=== PATIENT | male | born 1955 | race Caucasian/White ===

== ENCOUNTER 2021-05-23 14:01 | Inpatient (IN) ==
[~2021-05-23 14:01] MED LIST: CLORAZEPATE 3.75 MG TABLET PO PRN; DEXTROSE 50% 25 GM/50 ML VIAL IV PRN; GLUCAGON 1 MG VIAL IM PRN; MORPHINE 2 MG/1 ML SYRINGE IV PRN; NICOTINE 21 MG/24 HR PATCH TRANSDERM PRN; NITROGLYCERIN SL 0.4 MG TABLET SL PRN; SODIUM CHLORIDE 0.9% 1,000 ML IV SCH; ZALEPLON 5 MG CAPSULE PO PRN
[2021-05-23 18:25] LABS: Basophils % 0.3 % (0.0-0.8); Eosinophils # 0.2 10*3/uL (0.0-0.87); Eosinophils % 1.9 % (0.00-10.9); Hemoglobin 12.3 GM/DL (14.0-18.0); Immature Granulocytes % 0.4 %; Immature Granulocytes Absolute 0.04 #; Lymphocytes # 1.8 10*3/uL (1.4-4.0); Lymphocytes % 19.1 % (21.2-54.2); Mean Corpuscular HGB Conc 33.2 GM/DL (32-36); Mean Corpuscular Volume 84.5 FL (87-102); Mean Platelet Volume 9.5 FL (9.6-12.0); Monocytes % 6.7 % (1.7-12.7); Neutrophils % 71.6 % (38.7-73.9); Platelet Count 246 T/CUMM (130-400); Red Blood Count 4.38 MC/CUMM (3.8-5.5); Red Cell Distribution Width 12.2 % (9.3-17.3); White Blood Count 9.3 T/CUMM (4-12)
[2021-05-23 18:50] LABS: Alanine Aminotransferase 12 U/L (16-61); Alkaline Phosphatase 78 U/L (45-117); Aspartate Amino Transferase 13 U/L (0-37); Bilirubin,Total < 0.39 MG/DL (0.20-1.00); Blood Urea Nitrogen 13 MG/DL (7-18); Calcium 8.4 MG/DL (8.5-10.1); Carbon Dioxide 27 MMOL/L (21-32); Estimated Glom Filtration Rate 47 ML/MIN; Glucose 219 MG/DL (74-106); Osmolality,Calculated 276.1 MOS/KG (273-304); Potassium 3.8 MMOL/L (3.5-5.1); Sodium 135 MMOL/L (136-145); Total Protein 6.7 G/DL (6.4-8.2)
[2021-05-23] MEDS ORDERED: ACETAMINOPHEN 325 MG TABLET PO PRN (20:56)
[2021-05-23] MEDS: CHLORHEXIDINE 0.12% ORAL RINSE 60 ML BOTTLE SWISH/SPIT SCH ×2 (21:13→21:14)
[2021-05-23] MEDS: INSULIN REGULAR 100 UNIT/ML SUBCUT SCH ×2 (21:13)
[2021-05-23] MEDS: CHLORHEXIDINE 4% SOLN 118 ML BOTTLE TOP SCH ×2 (21:13)
[2021-05-24 03:37] LABS: ABG Base Excess 3.7 MMOL/L (-2.5-2.5); ABG HCO3 27.6 MMOL/L (20-26); ABG Oxygen Saturation 94.8 % (95-100); ABG PCO2 40.4 MM HG (35-48); ABG PH 7.447 (7.35-7.45); ABG PO2 70.4 MM HG (80-95); ABG TCO2 24.9 MMOL/L (23-27)
[2021-05-24] MEDS: CHLORHEXIDINE 4% SOLN 118 ML BOTTLE TOP SCH (04:50)
[2021-05-24] MEDS ORDERED: CEFUROXIME INJ 1,500 MG in SODIUM CHLORIDE 0.9% 100 ML IV ONE (05:00)
[2021-05-24] MEDS ORDERED: VANCOMYCIN 1,000 MG VIAL ONE (05:32)
[2021-05-24] MEDS ORDERED: PAPAVERINE 60 MG/2 ML VIAL ONE (05:32)
[2021-05-24] MEDS ORDERED: VANCOMYCIN 500 MG VIAL ONE (05:32)
[2021-05-24] MEDS ORDERED: MIDAZOLAM 10 MG/2 ML VIAL ONE ×3 (05:59)
[2021-05-24] MEDS ORDERED: SUFentanil 250 MCG/5 ML AMP ONE ×4 (05:59→09:24)
[2021-05-24] MEDS ORDERED: VECURONIUM 10 MG VIAL IV ONE (06:00)
[2021-05-24] MEDS ORDERED: ePHEDrine 50 MG/ML VIAL ONE (06:00)
[2021-05-24] MEDS ORDERED: ETOMIDATE 40 MG/20 ML VIAL IV ONE (06:00)
[2021-05-24] MEDS ORDERED: LIDOCAINE 2% 5 ML VIAL ONE ×3 (06:00→10:56)
[2021-05-24] MEDS ORDERED: CALCIUM CHLORIDE 1,000 MG/10 ML VIAL IV ONE ×3 (06:01→10:59)
[2021-05-24] MEDS ORDERED: DIAZEPAM 5 MG TABLET PO ONE (06:02)
[2021-05-24] MEDS ORDERED: SEVOFLURANE 1 UNIT/15 MINUTE INH ONE ×18 (06:13→11:51)
[2021-05-24] MEDS ORDERED: AMINOCAPROIC ACID 5,000 MG/20 ML VIAL ONE (06:18)
[2021-05-24] MEDS ORDERED: MINERAL OIL/PETROLATUM OPH OINT 3.5 GM TUBE ONE (07:05)
[2021-05-24 07:33] LABS: ABG Base Excess 1.1 MMOL/L (-2.5-2.5); ABG HCO3 25.4 MMOL/L (20-26); ABG Oxygen Saturation 97.2 % (95-100); ABG PCO2 46.8 MM HG (35-48); ABG PH 7.368 (7.35-7.45); ABG PO2 93.4 MM HG (80-95); ABG TCO2 24.2 MMOL/L (23-27); Glucose Heart Surgery 302 MG/DL (74-106); Hemoglobin Heart Surgery 11.4 G/DL (14.0-18.0); Ionized Calcium Arterial 1.13 MMOL/L (1.21-1.46); PCO2 Patient Temp Arterial 46.8 MMHG; PH Patient Temp Arterial 7.368; PO2 Patient Temp Arterial 93.4 MM HG; Patient Temperature 37 CELCIUS; Potassium Heart/CVR 3.6 MMOL/L (3.5-5.1); Sodium Heart/CVR 135 MMOL/L (135-145)
[2021-05-24] MEDS ORDERED: LACTATED RINGERS 1,000 ML IV ONE ×2 (07:55→10:10)
[2021-05-24] MEDS ORDERED: PHENYLEPHRINE DRIP 20 MG/250 ML PREMIX IV ONE (07:55)
[2021-05-24] MEDS ORDERED: PHENYLEPHRINE 1 MG/10 ML SYRINGE IV ONE (07:55)
[2021-05-24] MEDS ORDERED: NITROGLYCERIN DRIP 50 MG/250 ML BOTTLE IV ONE (07:55)
[2021-05-24] MEDS ORDERED: SODIUM CHLORIDE 0.9% 1,000 ML IV ONE (07:55)
[2021-05-24] MEDS ORDERED: HEPARIN/NACL 0.9% 2 UNITS/ML 1,000 UNIT/500 ML BAG IV ONE (07:55)
[2021-05-24] MEDS ORDERED: SODIUM CHLORIDE 0.9% 250 ML IV ONE (07:55)
[2021-05-24 08:16] LABS: Bilirubin,Urine Negative (Negative); Blood, Urine Negative (Negative); Glucose,Urine (UA) >=500 mg/dL (Negative); Ketones,Urine Negative (Negative); Mucus,Urine Occasional /LPF (Occasional); Nitrite,Urine Negative (Negative); Protein,Urine >=500 MG/DL; RBC,Urine 3 /HPF (0-4); Urine Appearance CLEAR (Clear); Urine Color Yellow (Yellow); Urine Specific Gravity 1.013 (1.001-1.035); Urine Urobilinogen < 2.0 EU/DL (0.2-1.0)
[2021-05-24] MEDS ORDERED: HEPARIN 10,000 UNIT/10 ML VIAL ONE ×2 (09:25→10:57)
[2021-05-24] MEDS ORDERED: NITROPRUSSIDE 50 MG/2 ML VIAL ONE (09:36)
[2021-05-24] MEDS ORDERED: SODIUM BICARBONATE 50 MEQ/50 ML VIAL IV ONE ×2 (09:36→10:57)
[2021-05-24] MEDS ORDERED: POTASSIUM CHLORIDE RIDER 20 MEQ/100 ML PREMIX IV ONE (09:37)
[2021-05-24] MEDS ORDERED: PHENYLEPHRINE DRIP 40 MG/250 ML PREMIX IV ONE (09:38)
[2021-05-24] MEDS ORDERED: CALCIUM CHLORIDE 1,000 MG/10 ML SYRINGE IV ONE (09:38)
[2021-05-24] MEDS ORDERED: ATROPINE 1 MG/10 ML SYRINGE ONE (09:44)
[2021-05-24] MEDS ORDERED: ALBUMIN 5% 12.5 GM/250 ML VIAL IV ONE (09:44)
[2021-05-24] MEDS ORDERED: LIDOCAINE 100 MG/5 ML SYRINGE ONE (09:44)
[2021-05-24 09:45] LABS: Hematocrit Heart Surgery 26.1 PERCENT (42-52); Hemoglobin Heart Surgery 8.4 G/DL (14.0-18.0); PCO2 Patient Temp Venous 39.8 MM HG; PH Patient Temp Venous 7.441; PO2 Patient Temp Venous 42.6 MM HG; VBG Base Excess 2.8 MEQ/L (0-4); VBG HCO3 26.7 MEQ/L (24-28); VBG Oxygen Saturation 80.5 %; VBG PCO2 39.8 MMHG (41-51); VBG PH 7.441; VBG PO2 42.6 MMHG (17-40); VBG Total CO2 25.1 MMOL/L
[2021-05-24] MEDS ORDERED: EPINEPHrine 1 MG/10 ML SYRINGE ONE (09:45)
[2021-05-24] MEDS ORDERED: ALBUTEROL INHALER 18 GM INH ONE (10:38)
[2021-05-24 10:46] LABS: ABG Base Excess 0.8 MMOL/L (-2.5-2.5); ABG Oxygen Saturation 90.7 % (95-100); ABG PCO2 40.5 MM HG (35-48); ABG PH 7.407 (7.35-7.45); ABG PO2 57.7 MM HG (80-95); ABG TCO2 23.3 MMOL/L (23-27); Glucose Heart Surgery 285 MG/DL (74-106); Hematocrit Heart Surgery 30.3 PERCENT (42-52); Hemoglobin Heart Surgery 9.8 G/DL (14.0-18.0); Ionized Calcium Arterial 1.39 MMOL/L (1.21-1.46); PCO2 Patient Temp Arterial 40.5 MMHG; PH Patient Temp Arterial 7.407; PO2 Patient Temp Arterial 57.7 MM HG; Patient Temperature 37 CELCIUS; Sodium Heart/CVR 133 MMOL/L (135-145)
[2021-05-24] MEDS ORDERED: ACETAMINOPHEN 650 MG SUPP RECTAL PRN (10:52)
[2021-05-24] MEDS ORDERED: LACTATED RINGERS 250 ML IV PRN (10:52)
[2021-05-24] MEDS ORDERED: MAGNESIUM SULF RIDER 4 GM/100 ML PREMIX IV PRN (10:52)
[2021-05-24] MEDS ORDERED: MORPHINE 10 MG/1 ML VIAL IV PRN (10:52)
[2021-05-24] MEDS ORDERED: INSULIN REGULAR 100 UNIT/ML IV ONE ×2 (10:52→15:56)
[2021-05-24] MEDS ORDERED: MIDAZOLAM 10 MG/2 ML VIAL IV PRN (10:52)
[2021-05-24] MEDS ORDERED: INSULIN REGULAR 100 UNIT/ML IV PRN (10:52)
[2021-05-24] MEDS ORDERED: MIDAZOLAM 2 MG/2 ML VIAL IV PRN (10:52)
[2021-05-24] MEDS ORDERED: CALCIUM CHLORIDE 1,000 MG/10 ML SYRINGE IV PRN (10:52)
[2021-05-24] MEDS ORDERED: ONDANSETRON 4 MG/2 ML VIAL IV PRN (10:52)
[2021-05-24] MEDS ORDERED: PHENYLEPHRINE DRIP 40 MG/250 ML PREMIX IV PRN (10:52)
[2021-05-24] MEDS ORDERED: DEXTROSE 50% 25 GM/50 ML VIAL IV PRN ×2 (10:52)
[2021-05-24] MEDS ORDERED: VECURONIUM 10 MG VIAL IV PRN ×2 (10:52)
[2021-05-24] MEDS ORDERED: MAGNESIUM SULF RIDER 2 GM/50 ML PREMIX IV PRN (10:52)
[2021-05-24] MEDS ORDERED: NITROPRUSSIDE 100 MG in DEXTROSE 5% 250 ML IV PRN (10:52)
[2021-05-24] MEDS ORDERED: CHLORHEXIDINE 4% SOLN 118 ML BOTTLE TOP PRN (10:52)
[2021-05-24] MEDS ORDERED: DEXTROSE 5% KCL 20 MEQ 20 MEQ/1,000 ML BAG IV ONE (10:55)
[2021-05-24] MEDS ORDERED: MAGNESIUM SULFATE 5 GM/10 ML VIAL IV ONE (10:56)
[2021-05-24] MEDS ORDERED: ALBUMIN 25% 25 GM/100 ML VIAL IV ONE (10:56)
[2021-05-24] MEDS ORDERED: FUROSEMIDE 20 MG/2 ML VIAL ONE (10:57)
[2021-05-24] MEDS ORDERED: methylPREDNISolone SOD SUC 1,000 MG/8 ML VIAL ONE (10:57)
[2021-05-24] MEDS ORDERED: MANNITOL 12.5 GM/50 ML VIAL IV ONE (10:57)
[2021-05-24] MEDS ORDERED: PROTAMINE SULFATE 250 MG/25 ML VIAL IV ONE (10:57)
[2021-05-24] MEDS ORDERED: ALBUTEROL 2.5 MG/3 ML NEB RESP TX ONE (11:11)
[2021-05-24] MEDS: SODIUM CHLORIDE 0.45% 1,000 ML IV SCH ×2 (11:30)
[2021-05-24 12:16] LABS: ABG Base Excess 0.7 MMOL/L (-2.5-2.5); ABG Oxygen Saturation 97.3 % (95-100); ABG PCO2 34.4 MM HG (35-48); ABG PH 7.454 (7.35-7.45); ABG PO2 87.4 MM HG (80-95); ABG TCO2 21.2 MMOL/L (23-27); Glucose Heart Surgery 289 MG/DL (74-106); Hematocrit Heart Surgery 38.1 PERCENT (42-52); Hemoglobin Heart Surgery 12.4 G/DL (14.0-18.0); Potassium Heart/CVR 3.8 MMOL/L (3.5-5.1)
[2021-05-24 12:21] LABS: Basophils % 0.3 % (0.0-0.8); Eosinophils % 0.4 % (0.00-10.9); Hematocrit 32.4 VOL% (42.0-52.0); Hemoglobin 10.8 GM/DL (14.0-18.0); Immature Granulocytes % 0.7 %; Immature Granulocytes Absolute 0.06 #; Lymphocytes # 0.7 10*3/uL (1.4-4.0); Lymphocytes % 7.8 % (21.2-54.2); Mean Corpuscular HGB Conc 33.3 GM/DL (32-36); Mean Corpuscular Volume 85.7 FL (87-102); Mean Platelet Volume 9.4 FL (9.6-12.0); Neutrophils % 85.8 % (38.7-73.9); Platelet Count 209 T/CUMM (130-400); Red Blood Count 3.78 MC/CUMM (3.8-5.5); Red Cell Distribution Width 12.5 % (9.3-17.3); White Blood Count 9.1 T/CUMM (4-12)
[2021-05-24 12:40] LABS: CKMB % 4.9 %
[2021-05-24 12:42] LABS: PT Patient Result 11.5 SECS (10.5-12.0); Partial Thromboplastin Time 32.1 SECS (23.8-32.1)
[2021-05-24 12:43] LABS: High Sensitive Troponin I* 1243.3 ng/L (0-78)
[2021-05-24 13:24] LABS: Albumin 2.1 G/DL (3.4-5.0); Calcium 9.3 MG/DL (8.5-10.1); Potassium 3.9 MMOL/L (3.5-5.1); Total Protein 5.7 G/DL (6.4-8.2)
[2021-05-24] MEDS: INSULIN REGULAR DRIP 100 ML IV SCH (14:25)
[2021-05-24] MEDS: LACTATED RINGERS 1,000 ML IV PRN ×2 (15:00→17:57)
[2021-05-24 15:43] LABS: ABG Base Excess 0.6 MMOL/L (-2.5-2.5); ABG HCO3 23.8 MMOL/L (20-26); ABG Oxygen Saturation 97.2 % (95-100); ABG PCO2 33.1 MM HG (35-48); ABG PH 7.474 (7.35-7.45); ABG PO2 94.4 MM HG (80-95); ABG TCO2 24.8 MMOL/L (23-27); Glucose Heart Surgery 279 MG/DL (74-106); Hemoglobin Heart Surgery 10.5 G/DL (14.0-18.0); Potassium Heart/CVR 3.8 MMOL/L (3.5-5.1)
[2021-05-24] MEDS: POTASSIUM CHLORIDE RIDER 20 MEQ/100 ML PREMIX IV PRN ×2 (17:00→21:10)
[2021-05-24] MEDS: ALBUMIN 5% 12.5 GM/250 ML VIAL IV PRN ×2 (17:11→17:27)
[2021-05-24] MEDS: POTASSIUM CHLORIDE RIDER 10 MEQ/100 ML PREMIX IV PRN ×2 (17:31→22:53)
[2021-05-24] MEDS ORDERED: FUROSEMIDE 40 MG/4 ML VIAL IV ONE (18:09)
[2021-05-24] MEDS: CEFUROXIME INJ 1,500 MG in SODIUM CHLORIDE 0.9% 100 ML IV SCH (19:13)
[2021-05-24 19:16] LABS: ABG HCO3 23.6 MMOL/L (20-26); ABG Oxygen Saturation 95.9 % (95-100); ABG PCO2 32.6 MM HG (35-48); ABG PH 7.447 (7.35-7.45); ABG PO2 74.3 MM HG (80-95); ABG TCO2 20.5 MMOL/L (23-27); Glucose Heart Surgery 196 MG/DL (74-106); Hematocrit Heart Surgery 30.3 PERCENT (42-52); Hemoglobin Heart Surgery 9.8 G/DL (14.0-18.0); Potassium Heart/CVR 3.7 MMOL/L (3.5-5.1)
[2021-05-24 20:54] LABS: ABG Base Excess 0.7 MMOL/L (-2.5-2.5); ABG Oxygen Saturation 94.7 % (95-100); ABG PCO2 26.9 MM HG (35-48); ABG PO2 62.9 MM HG (80-95); ABG TCO2 20.2 MMOL/L (23-27); Glucose Heart Surgery 169 MG/DL (74-106); Hematocrit Heart Surgery 32.9 PERCENT (42-52); Hemoglobin Heart Surgery 10.6 G/DL (14.0-18.0); Potassium Heart/CVR 3.6 MMOL/L (3.5-5.1)
[2021-05-24] MEDS: CHLORHEXIDINE 0.12% ORAL RINSE 60 ML BOTTLE SWISH/SPIT SCH (20:59)
[2021-05-24] MEDS: DEXMEDETOMIDINE 200 MCG in SODIUM CHLORIDE 0.9% 48 ML IV PRN (21:55)
[2021-05-24 22:06] LABS: CKMB % 3.8 %
[2021-05-24 22:10] LABS: High Sensitive Troponin I* 3585.9 ng/L (0-78)
[2021-05-24 23:04] LABS: ABG Base Excess 1.5 MMOL/L (-2.5-2.5); ABG HCO3 25.7 MMOL/L (20-26); ABG Oxygen Saturation 97.8 % (95-100); ABG PCO2 30.9 MM HG (35-48); ABG PH 7.501 (7.35-7.45); ABG PO2 88.1 MM HG (80-95); ABG TCO2 21.9 MMOL/L (23-27); Glucose Heart Surgery 144 MG/DL (74-106); Hematocrit Heart Surgery 30.3 PERCENT (42-52); Hemoglobin Heart Surgery 9.8 G/DL (14.0-18.0); Potassium Heart/CVR 4.1 MMOL/L (3.5-5.1)
[2021-05-25 00:09] LABS: ABG Base Excess 0.4 MMOL/L (-2.5-2.5); ABG HCO3 24.8 MMOL/L (20-26); ABG Oxygen Saturation 98.3 % (95-100); ABG PCO2 34.9 MM HG (35-48); ABG PH 7.446 (7.35-7.45); ABG TCO2 21.8 MMOL/L (23-27); Glucose Heart Surgery 206 MG/DL (74-106); Hematocrit Heart Surgery 31.3 PERCENT (42-52); Hemoglobin Heart Surgery 10.1 G/DL (14.0-18.0); Potassium Heart/CVR 4.4 MMOL/L (3.5-5.1)
[2021-05-25] MEDS: DEXMEDETOMIDINE 200 MCG in SODIUM CHLORIDE 0.9% 48 ML IV PRN ×3 (00:29→07:04)
[2021-05-25] MEDS: ALBUMIN 5% 12.5 GM/250 ML VIAL IV PRN (00:30)
[2021-05-25] MEDS ORDERED: FUROSEMIDE 40 MG/4 ML VIAL IV ONE ×3 (00:59→15:31)
[2021-05-25 01:44] LABS: ABG Base Excess -0.8 MMOL/L (-2.5-2.5); ABG HCO3 23.8 MMOL/L (20-26); ABG Oxygen Saturation 97.4 % (95-100); ABG PCO2 37.1 MM HG (35-48); ABG PH 7.411 (7.35-7.45); ABG PO2 93.1 MM HG (80-95); ABG TCO2 21.4 MMOL/L (23-27); Glucose Heart Surgery 186 MG/DL (74-106); Hematocrit Heart Surgery 31.1 PERCENT (42-52); Hemoglobin Heart Surgery 10.1 G/DL (14.0-18.0)
[2021-05-25 02:31] LABS: ABG Base Excess -1.1 MMOL/L (-2.5-2.5); ABG HCO3 23.5 MMOL/L (20-26); ABG Oxygen Saturation 95.8 % (95-100); ABG PCO2 36.3 MM HG (35-48); ABG PH 7.412 (7.35-7.45); ABG PO2 77.6 MM HG (80-95); Glucose Heart Surgery 173 MG/DL (74-106); Hematocrit Heart Surgery 31.1 PERCENT (42-52); Hemoglobin Heart Surgery 10.1 G/DL (14.0-18.0); Potassium Heart/CVR 3.9 MMOL/L (3.5-5.1)
[2021-05-25 03:18] LABS: ABG Base Excess -0.1 MMOL/L (-2.5-2.5); ABG HCO3 24.3 MMOL/L (20-26); ABG Oxygen Saturation 95.2 % (95-100); ABG PCO2 32.4 MM HG (35-48); ABG PH 7.461 (7.35-7.45); ABG PO2 71.1 MM HG (80-95); ABG TCO2 20.6 MMOL/L (23-27); Glucose Heart Surgery 160 MG/DL (74-106); Hematocrit Heart Surgery 34.3 PERCENT (42-52); Hemoglobin Heart Surgery 11.1 G/DL (14.0-18.0)
[2021-05-25 03:20] LABS: Basophils % 0.1 % (0.0-0.8); Hematocrit 30.2 VOL% (42.0-52.0); Hemoglobin 9.9 GM/DL (14.0-18.0); Immature Granulocytes % 0.4 %; Immature Granulocytes Absolute 0.06 #; Lymphocytes # 0.8 10*3/uL (1.4-4.0); Lymphocytes % 5.8 % (21.2-54.2); Mean Corpuscular HGB Conc 32.8 GM/DL (32-36); Monocytes % 2.6 % (1.7-12.7); Neutrophils % 91.1 % (38.7-73.9); Platelet Count 199 T/CUMM (130-400); Red Blood Count 3.51 MC/CUMM (3.8-5.5); Red Cell Distribution Width 12.6 % (9.3-17.3); White Blood Count 13.4 T/CUMM (4-12)
[2021-05-25 03:38] LABS: CKMB % 3.9 %; High Sensitive Troponin I* 3275.4 ng/L (0-78)
[2021-05-25 03:43] LABS: Lymphocytes 4 % (20-55); Platelet Estimate Adequate; Segmented Neutrophils 92 % (50-85); Total Cells Counted 100
[2021-05-25 03:44] LABS: Hypochromasia 1+; Microcytosis 1+
[2021-05-25 03:47] LABS: Albumin 2.4 G/DL (3.4-5.0); Bilirubin,Direct 0.11 MG/DL (0.0-0.20); Bilirubin,Total 0.4 MG/DL (0.20-1.00); Calcium 8.1 MG/DL (8.5-10.1); Osmolality,Calculated 283.5 MOS/KG (273-304); Potassium 4.2 MMOL/L (3.5-5.1); Total Protein 5.2 G/DL (6.4-8.2)
[2021-05-25 04:37] LABS: ABG Base Excess -0.2 MMOL/L (-2.5-2.5); ABG HCO3 24.2 MMOL/L (20-26); ABG Oxygen Saturation 95.8 % (95-100); ABG PH 7.437 (7.35-7.45); ABG PO2 75.5 MM HG (80-95); ABG TCO2 21.4 MMOL/L (23-27); Glucose Heart Surgery 146 MG/DL (74-106); Hematocrit Heart Surgery 30.7 PERCENT (42-52); Hemoglobin Heart Surgery 9.9 G/DL (14.0-18.0); Potassium Heart/CVR 4.1 MMOL/L (3.5-5.1)
[2021-05-25] MEDS: LACTATED RINGERS 1,000 ML IV PRN (05:10)
[2021-05-25] MEDS: INSULIN REGULAR DRIP 100 ML IV SCH ×2 (05:40→10:55)
[2021-05-25 05:42] LABS: ABG Base Excess -0.4 MMOL/L (-2.5-2.5); ABG HCO3 24.1 MMOL/L (20-26); ABG Oxygen Saturation 95.2 % (95-100); ABG PCO2 34.4 MM HG (35-48); ABG PH 7.439 (7.35-7.45); ABG PO2 72.4 MM HG (80-95); Glucose Heart Surgery 140 MG/DL (74-106); Hematocrit Heart Surgery 32.7 PERCENT (42-52); Hemoglobin Heart Surgery 10.6 G/DL (14.0-18.0)
[2021-05-25] MEDS: CEFUROXIME INJ 1,500 MG in SODIUM CHLORIDE 0.9% 100 ML IV SCH ×2 (07:10→18:18)
[2021-05-25] MEDS: INSULIN REGULAR 100 UNIT/ML SUBCUT SCH ×3 (07:37→20:29)
[2021-05-25] MEDS: CHLORHEXIDINE 0.12% ORAL RINSE 60 ML BOTTLE SWISH/SPIT SCH ×3 (07:37→20:29)
[2021-05-25 08:49] LABS: ABG Base Excess 0.4 MMOL/L (-2.5-2.5); ABG HCO3 24.8 MMOL/L (20-26); ABG Oxygen Saturation 95.7 % (95-100); ABG PCO2 28.6 MM HG (35-48); ABG PH 7.509 (7.35-7.45); ABG PO2 72.2 MM HG (80-95); ABG TCO2 20.6 MMOL/L (23-27); Glucose Heart Surgery 141 MG/DL (74-106); Hematocrit Heart Surgery 30.4 PERCENT (42-52); Hemoglobin Heart Surgery 9.8 G/DL (14.0-18.0); Potassium Heart/CVR 3.7 MMOL/L (3.5-5.1)
[2021-05-25 09:52] LABS: ABG Base Excess 0.7 MMOL/L (-2.5-2.5); ABG Oxygen Saturation 94.1 % (95-100); ABG PH 7.542 (7.35-7.45); ABG PO2 61.9 MM HG (80-95); ABG TCO2 20.3 MMOL/L (23-27); Glucose Heart Surgery 130 MG/DL (74-106); Hematocrit Heart Surgery 30.3 PERCENT (42-52); Hemoglobin Heart Surgery 9.8 G/DL (14.0-18.0); Potassium Heart/CVR 3.5 MMOL/L (3.5-5.1)
[2021-05-25] MEDS: POTASSIUM CHLORIDE RIDER 20 MEQ/100 ML PREMIX IV PRN (09:56)
[2021-05-25] MEDS: PANTOPRAZOLE 40 MG VIAL IV SCH (10:51)
[2021-05-25] MEDS: ASPIRIN CHEW 81 MG TABLET PO SCH (10:52)
[2021-05-25] MEDS: SODIUM CHLORIDE 0.45% 1,000 ML IV SCH ×2 (10:53)
[2021-05-25 11:59] LABS: ABG Base Excess -0.1 MMOL/L (-2.5-2.5); ABG HCO3 24.3 MMOL/L (20-26); ABG Oxygen Saturation 95.2 % (95-100); ABG PCO2 28.9 MM HG (35-48); ABG PH 7.497 (7.35-7.45); ABG PO2 70.2 MM HG (80-95); ABG TCO2 20.3 MMOL/L (23-27); Glucose Heart Surgery 114 MG/DL (74-106); Hemoglobin Heart Surgery 9.7 G/DL (14.0-18.0); Potassium Heart/CVR 3.7 MMOL/L (3.5-5.1)
[2021-05-25 12:37] LABS: CKMB % 3.5 %
[2021-05-25 12:39] LABS: High Sensitive Troponin I* 3264.4 ng/L (0-78)
[2021-05-25] MEDS: oxyCODONE/ACETAMINOPHEN 5-325 MG TABLET PO PRN ×2 (15:49→23:05)
[2021-05-25] MEDS: ALBUTEROL/IPRATROPIUM 3 ML NEB RESP TX SCH ×2 (16:00→20:00)
[2021-05-26] MEDS: ALBUTEROL/IPRATROPIUM 3 ML NEB RESP TX SCH ×4 (00:12→19:13)
[2021-05-26 04:41] LABS: Basophils % 0.1 % (0.0-0.8); Eosinophils # 0.1 10*3/uL (0.0-0.87); Eosinophils % 0.7 % (0.00-10.9); Hematocrit 28.7 VOL% (42.0-52.0); Hemoglobin 9.3 GM/DL (14.0-18.0); Immature Granulocytes % 0.6 %; Lymphocytes # 1.7 10*3/uL (1.4-4.0); Lymphocytes % 9.8 % (21.2-54.2); Mean Corpuscular HGB Conc 32.4 GM/DL (32-36); Mean Corpuscular Volume 88.9 FL (87-102); Mean Platelet Volume 10.2 FL (9.6-12.0); Monocytes % 6.1 % (1.7-12.7); Neutrophils % 82.7 % (38.7-73.9); Platelet Count 224 T/CUMM (130-400); Red Blood Count 3.23 MC/CUMM (3.8-5.5); Red Cell Distribution Width 12.8 % (9.3-17.3); White Blood Count 17.4 T/CUMM (4-12)
[2021-05-26 05:04] LABS: Alanine Aminotransferase 14 U/L (16-61); Alkaline Phosphatase 62 U/L (45-117); Aspartate Amino Transferase 46 U/L (0-37); Bilirubin,Direct < 0.100 MG/DL (0.0-0.20); Bilirubin,Total < 0.39 MG/DL (0.20-1.00); Blood Urea Nitrogen 33 MG/DL (7-18); Calcium 7.6 MG/DL (8.5-10.1); Carbon Dioxide 26 MMOL/L (21-32); Estimated Glom Filtration Rate 29 ML/MIN; Glucose 219 MG/DL (74-106); Potassium 3.9 MMOL/L (3.5-5.1); Sodium 136 MMOL/L (136-145); Total Protein 5.4 G/DL (6.4-8.2)
[2021-05-26] MEDS: ASPIRIN CHEW 81 MG TABLET PO SCH (08:11)
[2021-05-26] MEDS: CHLORHEXIDINE 0.12% ORAL RINSE 60 ML BOTTLE SWISH/SPIT SCH ×2 (08:13→21:17)
[2021-05-26] MEDS: oxyCODONE/ACETAMINOPHEN 5-325 MG TABLET PO PRN ×4 (08:13→21:15)
[2021-05-26] MEDS: PANTOPRAZOLE 40 MG VIAL IV SCH (08:14)
[2021-05-26] MEDS: INSULIN REGULAR 100 UNIT/ML SUBCUT SCH ×4 (08:14→21:16)
[2021-05-26] MEDS ORDERED: PHENOL 1.4% THROAT SPRAY 177 ML BOTTLE PO PRN (12:46)
[2021-05-26] MEDS ORDERED: MAGNESIUM SULF RIDER 4 GM/100 ML PREMIX IV PRN (13:29)
[2021-05-26] MEDS ORDERED: DEXTROSE 50% 25 GM/50 ML VIAL IV PRN ×2 (13:29)
[2021-05-26] MEDS ORDERED: ALUMINUM/MAGNES/SIMETH MAX STR 30 ML UDCUP PO PRN (13:29)
[2021-05-26] MEDS ORDERED: MAGNESIUM SULF RIDER 2 GM/50 ML PREMIX IV PRN (13:29)
[2021-05-26] MEDS ORDERED: GLUCAGON 1 MG VIAL IM PRN ×2 (13:29)
[2021-05-26] MEDS ORDERED: ACETAMINOPHEN 325 MG TABLET PO PRN (13:29)
[2021-05-26] MEDS ORDERED: SODIUM CHLOR 0.45% KCL 20 MEQ 20 MEQ/1,000 ML BAG IV SCH (13:29)
[2021-05-26] MEDS ORDERED: ONDANSETRON 4 MG/2 ML VIAL IV PRN (13:29)
[2021-05-26] MEDS ORDERED: MAGNESIUM HYDROXIDE SUSP 30 ML UDCUP PO PRN (13:29)
[2021-05-26] MEDS: hydroCHLOROthiazide 25 MG TABLET PO SCH (15:07)
[2021-05-26] MEDS: metFORMIN 500 MG TABLET PO SCH (16:55)
[2021-05-26] MEDS ORDERED: FUROSEMIDE 40 MG/4 ML VIAL IV ONE ×2 (17:28)
[2021-05-26] MEDS: ZALEPLON 5 MG CAPSULE PO PRN (21:15)
[2021-05-26] MEDS: INSULIN GLARGINE 100 UNIT/ML SUBCUT SCH (21:17)
[2021-05-27] MEDS: ZALEPLON 5 MG CAPSULE PO PRN ×2 (00:16→20:55)
[2021-05-27] MEDS: MORPHINE 2 MG/1 ML SYRINGE IV PRN (00:40)
[2021-05-27] MEDS: ALBUTEROL/IPRATROPIUM 3 ML NEB RESP TX SCH ×4 (00:48→20:10)
[2021-05-27 05:00] LABS: Basophils % 0.3 % (0.0-0.8); Eosinophils # 0.4 10*3/uL (0.0-0.87); Eosinophils % 2.5 % (0.00-10.9); Hematocrit 31.3 VOL% (42.0-52.0); Hemoglobin 9.9 GM/DL (14.0-18.0); Immature Granulocytes % 0.7 %; Lymphocytes # 2.3 10*3/uL (1.4-4.0); Lymphocytes % 15.3 % (21.2-54.2); Mean Corpuscular HGB Conc 31.6 GM/DL (32-36); Mean Corpuscular Volume 88.2 FL (87-102); Mean Platelet Volume 10.1 FL (9.6-12.0); Neutrophils % 73.2 % (38.7-73.9); Platelet Count 238 T/CUMM (130-400); Red Blood Count 3.55 MC/CUMM (3.8-5.5); Red Cell Distribution Width 12.6 % (9.3-17.3); White Blood Count 14.7 T/CUMM (4-12)
[2021-05-27 05:17] LABS: Alanine Aminotransferase 14 U/L (16-61); Alkaline Phosphatase 69 U/L (45-117); Aspartate Amino Transferase 20 U/L (0-37); Bilirubin,Indirect 0.3 MG/DL (0.0-1.0); Bilirubin,Total < 0.39 MG/DL (0.20-1.00); Blood Urea Nitrogen 32 MG/DL (7-18); Calcium 7.8 MG/DL (8.5-10.1); Carbon Dioxide 29 MMOL/L (21-32); Estimated Glom Filtration Rate 33 ML/MIN; Glucose 172 MG/DL (74-106); Osmolality,Calculated 285.7 MOS/KG (273-304); Potassium 3.3 MMOL/L (3.5-5.1); Sodium 138 MMOL/L (136-145); Total Protein 5.7 G/DL (6.4-8.2)
[2021-05-27] MEDS ORDERED: FUROSEMIDE 40 MG/4 ML VIAL IV ONE ×4 (06:00→18:00)
[2021-05-27] MEDS: POTASSIUM CHLORIDE 20 MEQ TABLET PO PRN ×3 (06:49→09:25)
[2021-05-27] MEDS: INSULIN REGULAR 100 UNIT/ML SUBCUT SCH ×4 (08:03→21:32)
[2021-05-27] MEDS: hydroCHLOROthiazide 25 MG TABLET PO SCH (08:04)
[2021-05-27] MEDS: METOPROLOL TARTRATE 25 MG TABLET PO SCH ×2 (08:04→21:34)
[2021-05-27] MEDS: metFORMIN 500 MG TABLET PO SCH ×2 (08:05→17:07)
[2021-05-27] MEDS: CLOPIDOGREL 75 MG TABLET PO SCH (08:05)
[2021-05-27] MEDS: FERROUS SULFATE 325 MG TABLET PO SCH (08:05)
[2021-05-27] MEDS: DOCUSATE SODIUM 100 MG CAPSULE PO SCH (08:05)
[2021-05-27] MEDS: PANTOPRAZOLE 40 MG TABLET PO SCH (08:05)
[2021-05-27] MEDS: CHLORHEXIDINE 0.12% ORAL RINSE 60 ML BOTTLE SWISH/SPIT SCH ×2 (08:06→21:34)
[2021-05-27] MEDS: ASPIRIN EC 81 MG TABLET PO SCH (08:06)
[2021-05-27] MEDS: oxyCODONE/ACETAMINOPHEN 5-325 MG TABLET PO PRN ×2 (14:08→21:35)
[2021-05-27] MEDS: ATORVASTATIN 40 MG TABLET PO SCH (21:33)
[2021-05-27] MEDS: INSULIN GLARGINE 100 UNIT/ML SUBCUT SCH (21:33)
[2021-05-28] MEDS: ALBUTEROL/IPRATROPIUM 3 ML NEB RESP TX SCH ×4 (00:53→18:45)
[2021-05-28] MEDS: ZALEPLON 5 MG CAPSULE PO PRN ×2 (01:00→20:12)
[2021-05-28] MEDS: MORPHINE 2 MG/1 ML SYRINGE IV PRN (01:00)
[2021-05-28 04:05] LABS: Basophils # 0.1 10*3/uL (0.0-0.2); Basophils % 0.5 % (0.0-0.8); Eosinophils # 0.5 10*3/uL (0.0-0.87); Eosinophils % 3.7 % (0.00-10.9); Hematocrit 29.6 VOL% (42.0-52.0); Hemoglobin 9.7 GM/DL (14.0-18.0); Immature Granulocytes % 0.7 %; Immature Granulocytes Absolute 0.09 #; Lymphocytes # 2.9 10*3/uL (1.4-4.0); Lymphocytes % 22.5 % (21.2-54.2); Mean Corpuscular HGB Conc 32.8 GM/DL (32-36); Mean Corpuscular Volume 87.1 FL (87-102); Mean Platelet Volume 9.8 FL (9.6-12.0); Monocytes % 6.9 % (1.7-12.7); Neutrophils % 65.7 % (38.7-73.9); Platelet Count 278 T/CUMM (130-400); Red Cell Distribution Width 12.5 % (9.3-17.3); White Blood Count 12.9 T/CUMM (4-12)
[2021-05-28 04:34] LABS: Alanine Aminotransferase 13 U/L (16-61); Albumin 1.9 G/DL (3.4-5.0); Alkaline Phosphatase 67 U/L (45-117); Aspartate Amino Transferase 14 U/L (0-37); Bilirubin,Indirect 0.4 MG/DL (0.0-1.0); Blood Urea Nitrogen 30 MG/DL (7-18); Calcium 7.9 MG/DL (8.5-10.1); Carbon Dioxide 31 MMOL/L (21-32); Estimated Glom Filtration Rate 38 ML/MIN; Glucose 106 MG/DL (74-106); Osmolality,Calculated 278.8 MOS/KG (273-304); Sodium 137 MMOL/L (136-145); Total Protein 5.7 G/DL (6.4-8.2)
[2021-05-28] MEDS: POTASSIUM CHLORIDE 20 MEQ TABLET PO PRN ×2 (06:04→08:15)
[2021-05-28] MEDS: INSULIN REGULAR 100 UNIT/ML SUBCUT SCH ×4 (07:30→20:11)
[2021-05-28] MEDS: METOPROLOL TARTRATE 25 MG TABLET PO SCH ×2 (08:15→20:11)
[2021-05-28] MEDS: FERROUS SULFATE 325 MG TABLET PO SCH (08:15)
[2021-05-28] MEDS: hydroCHLOROthiazide 25 MG TABLET PO SCH (08:15)
[2021-05-28] MEDS: metFORMIN 500 MG TABLET PO SCH (08:15)
[2021-05-28] MEDS: PANTOPRAZOLE 40 MG TABLET PO SCH (08:15)
[2021-05-28] MEDS: CLOPIDOGREL 75 MG TABLET PO SCH (08:15)
[2021-05-28] MEDS: DOCUSATE SODIUM 100 MG CAPSULE PO SCH (08:15)
[2021-05-28] MEDS: ASPIRIN EC 81 MG TABLET PO SCH (08:15)
[2021-05-28] MEDS: CHLORHEXIDINE 0.12% ORAL RINSE 60 ML BOTTLE SWISH/SPIT SCH ×2 (08:30→20:11)
[2021-05-28] MEDS: oxyCODONE/ACETAMINOPHEN 5-325 MG TABLET PO PRN ×2 (12:15→20:11)
[2021-05-28] MEDS ORDERED: SKIN HEALING OINT (AQUAPHOR) 50 GM TUBE TOP PRN (13:35)
[2021-05-28] MEDS: INSULIN GLARGINE 100 UNIT/ML SUBCUT SCH (20:11)
[2021-05-28] MEDS: ATORVASTATIN 40 MG TABLET PO SCH (20:11)
[2021-05-28] MEDS ORDERED: SODIUM CHLORIDE 0.65% NASAL SPRAY 45 ML BOTTLE BOTH NARES PRN (21:33)
[2021-05-29] MEDS: CLORAZEPATE 7.5 MG TABLET PO PRN (00:14)
[2021-05-29] MEDS: ALBUTEROL/IPRATROPIUM 3 ML NEB RESP TX SCH ×4 (01:09→20:03)
[2021-05-29 04:28] LABS: Basophils # 0.1 10*3/uL (0.0-0.2); Basophils % 0.6 % (0.0-0.8); Eosinophils # 0.5 10*3/uL (0.0-0.87); Hematocrit 31.4 VOL% (42.0-52.0); Hemoglobin 10.2 GM/DL (14.0-18.0); Immature Granulocytes % 0.9 %; Immature Granulocytes Absolute 0.11 #; Lymphocytes # 2.7 10*3/uL (1.4-4.0); Lymphocytes % 20.9 % (21.2-54.2); Mean Corpuscular HGB Conc 32.5 GM/DL (32-36); Mean Corpuscular Volume 87.7 FL (87-102); Mean Platelet Volume 9.6 FL (9.6-12.0); Monocytes % 6.6 % (1.7-12.7); Platelet Count 326 T/CUMM (130-400); Red Blood Count 3.58 MC/CUMM (3.8-5.5); Red Cell Distribution Width 12.5 % (9.3-17.3); White Blood Count 12.7 T/CUMM (4-12)
[2021-05-29 06:43] LABS: Calcium 7.9 MG/DL (8.5-10.1); Osmolality,Calculated 280.8 MOS/KG (273-304); Potassium 3.3 MMOL/L (3.5-5.1)
[2021-05-29] MEDS: INSULIN REGULAR 100 UNIT/ML SUBCUT SCH ×5 (07:45→21:27)
[2021-05-29] MEDS: CLOPIDOGREL 75 MG TABLET PO SCH (08:05)
[2021-05-29] MEDS: hydroCHLOROthiazide 25 MG TABLET PO SCH (08:05)
[2021-05-29] MEDS: FERROUS SULFATE 325 MG TABLET PO SCH (08:05)
[2021-05-29] MEDS: POTASSIUM CHLORIDE 20 MEQ TABLET PO PRN ×3 (08:05→12:15)
[2021-05-29] MEDS: PANTOPRAZOLE 40 MG TABLET PO SCH (08:05)
[2021-05-29] MEDS: METOPROLOL TARTRATE 25 MG TABLET PO SCH ×2 (08:05→21:24)
[2021-05-29] MEDS: DOCUSATE SODIUM 100 MG CAPSULE PO SCH (08:05)
[2021-05-29] MEDS: ASPIRIN EC 81 MG TABLET PO SCH (08:05)
[2021-05-29] MEDS: CHLORHEXIDINE 0.12% ORAL RINSE 60 ML BOTTLE SWISH/SPIT SCH ×2 (08:30→21:25)
[2021-05-29] MEDS ORDERED: SODIUM CHLORIDE 0.9% 100 ML IV ONE (12:08)
[2021-05-29] MEDS: ATORVASTATIN 40 MG TABLET PO SCH (21:25)
[2021-05-29] MEDS: INSULIN GLARGINE 100 UNIT/ML SUBCUT SCH (21:25)
[2021-05-30] MEDS: ALBUTEROL/IPRATROPIUM 3 ML NEB RESP TX SCH ×4 (01:00→19:51)
[2021-05-30] MEDS: oxyCODONE/ACETAMINOPHEN 5-325 MG TABLET PO PRN (04:20)
[2021-05-30 04:24] LABS: Basophils # 0.1 10*3/uL (0.0-0.2); Basophils % 0.5 % (0.0-0.8); Eosinophils # 0.5 10*3/uL (0.0-0.87); Eosinophils % 4.4 % (0.00-10.9); Hematocrit 29.6 VOL% (42.0-52.0); Hemoglobin 9.2 GM/DL (14.0-18.0); Immature Granulocytes % 0.9 %; Lymphocytes # 2.5 10*3/uL (1.4-4.0); Lymphocytes % 21.9 % (21.2-54.2); Mean Corpuscular HGB Conc 31.1 GM/DL (32-36); Mean Corpuscular Volume 88.4 FL (87-102); Mean Platelet Volume 9.8 FL (9.6-12.0); Monocytes % 8.3 % (1.7-12.7); Platelet Count 298 T/CUMM (130-400); Red Blood Count 3.35 MC/CUMM (3.8-5.5); Red Cell Distribution Width 12.7 % (9.3-17.3); White Blood Count 11.2 T/CUMM (4-12)
[2021-05-30 04:46] LABS: Alanine Aminotransferase 12 U/L (16-61); Albumin 1.9 G/DL (3.4-5.0); Alkaline Phosphatase 61 U/L (45-117); Aspartate Amino Transferase 7 U/L (0-37); Bilirubin,Direct < 0.100 MG/DL (0.0-0.20); Blood Urea Nitrogen 27 MG/DL (7-18); Calcium 8.1 MG/DL (8.5-10.1); Carbon Dioxide 29 MMOL/L (21-32); Estimated Glom Filtration Rate 35 ML/MIN; Glucose 207 MG/DL (74-106); Osmolality,Calculated 283.8 MOS/KG (273-304); Potassium 3.7 MMOL/L (3.5-5.1); Sodium 137 MMOL/L (136-145); Total Protein 5.7 G/DL (6.4-8.2)
[2021-05-30 04:50] LABS: Bilirubin,Indirect 0.7 MG/DL (0.0-1.0)
[2021-05-30] MEDS: CLORAZEPATE 7.5 MG TABLET PO PRN ×2 (06:03→19:23)
[2021-05-30] MEDS ORDERED: OZEMPIC 2MG/1.5ML SUBCUT SCH (09:00)
[2021-05-30] MEDS: DOCUSATE SODIUM 100 MG CAPSULE PO SCH (09:29)
[2021-05-30] MEDS: hydroCHLOROthiazide 25 MG TABLET PO SCH (09:29)
[2021-05-30] MEDS: FERROUS SULFATE 325 MG TABLET PO SCH (09:29)
[2021-05-30] MEDS: ASPIRIN EC 81 MG TABLET PO SCH (09:29)
[2021-05-30] MEDS: METOPROLOL TARTRATE 25 MG TABLET PO SCH ×2 (09:29→20:59)
[2021-05-30] MEDS: CLOPIDOGREL 75 MG TABLET PO SCH (09:29)
[2021-05-30] MEDS: INSULIN REGULAR 100 UNIT/ML SUBCUT SCH ×4 (09:29→21:00)
[2021-05-30] MEDS: PANTOPRAZOLE 40 MG TABLET PO SCH (09:29)
[2021-05-30] MEDS: CHLORHEXIDINE 0.12% ORAL RINSE 60 ML BOTTLE SWISH/SPIT SCH ×2 (09:30→21:00)
[2021-05-30] MEDS: ATORVASTATIN 40 MG TABLET PO SCH (20:59)
[2021-05-30] MEDS: ZALEPLON 5 MG CAPSULE PO PRN (21:00)
[2021-05-30] MEDS: INSULIN GLARGINE 100 UNIT/ML SUBCUT SCH (21:00)
[2021-05-31] MEDS: ALBUTEROL/IPRATROPIUM 3 ML NEB RESP TX SCH ×4 (01:09→20:15)
[2021-05-31 05:58] LABS: Basophils # 0.1 10*3/uL (0.0-0.2); Basophils % 0.5 % (0.0-0.8); Eosinophils # 0.5 10*3/uL (0.0-0.87); Eosinophils % 4.4 % (0.00-10.9); Hematocrit 29.7 VOL% (42.0-52.0); Hemoglobin 9.6 GM/DL (14.0-18.0); Immature Granulocytes Absolute 0.12 #; Lymphocytes # 2.8 10*3/uL (1.4-4.0); Lymphocytes % 22.2 % (21.2-54.2); Mean Corpuscular HGB Conc 32.3 GM/DL (32-36); Mean Corpuscular Volume 87.6 FL (87-102); Mean Platelet Volume 9.4 FL (9.6-12.0); Monocytes % 7.8 % (1.7-12.7); Neutrophils % 64.1 % (38.7-73.9); Platelet Count 319 T/CUMM (130-400); Red Blood Count 3.39 MC/CUMM (3.8-5.5); Red Cell Distribution Width 12.7 % (9.3-17.3); White Blood Count 12.4 T/CUMM (4-12)
[2021-05-31 06:18] LABS: Alanine Aminotransferase 18 U/L (16-61); Albumin 2.1 G/DL (3.4-5.0); Alkaline Phosphatase 69 U/L (45-117); Aspartate Amino Transferase 9 U/L (0-37); Bilirubin,Indirect 0.3 MG/DL (0.0-1.0); Blood Urea Nitrogen 24 MG/DL (7-18); Calcium 8.1 MG/DL (8.5-10.1); Carbon Dioxide 28 MMOL/L (21-32); Estimated Glom Filtration Rate 39 ML/MIN; Glucose 154 MG/DL (74-106); Osmolality,Calculated 281.7 MOS/KG (273-304); Potassium 3.6 MMOL/L (3.5-5.1); Sodium 138 MMOL/L (136-145); Total Protein 6.1 G/DL (6.4-8.2)
[2021-05-31] MEDS ORDERED: FUROSEMIDE 40 MG/4 ML VIAL IV ONE (06:28)
[2021-05-31] MEDS: INSULIN REGULAR 100 UNIT/ML SUBCUT SCH ×4 (09:35→21:15)
[2021-05-31] MEDS: CLOPIDOGREL 75 MG TABLET PO SCH (09:35)
[2021-05-31] MEDS: METOPROLOL TARTRATE 25 MG TABLET PO SCH ×2 (09:35→21:15)
[2021-05-31] MEDS: DOCUSATE SODIUM 100 MG CAPSULE PO SCH (09:35)
[2021-05-31] MEDS: FERROUS SULFATE 325 MG TABLET PO SCH (09:35)
[2021-05-31] MEDS: PANTOPRAZOLE 40 MG TABLET PO SCH (09:35)
[2021-05-31] MEDS: ASPIRIN EC 81 MG TABLET PO SCH (09:35)
[2021-05-31] MEDS: hydroCHLOROthiazide 25 MG TABLET PO SCH (09:35)
[2021-05-31] MEDS: CHLORHEXIDINE 0.12% ORAL RINSE 60 ML BOTTLE SWISH/SPIT SCH ×2 (09:37→21:15)
[2021-05-31] MEDS: CLORAZEPATE 7.5 MG TABLET PO PRN (17:11)
[2021-05-31] MEDS: INSULIN GLARGINE 100 UNIT/ML SUBCUT SCH (21:15)
[2021-05-31] MEDS: ATORVASTATIN 40 MG TABLET PO SCH (21:15)
[2021-05-31] MEDS: ZALEPLON 5 MG CAPSULE PO PRN (21:15)
[2021-06-01] MEDS: ALBUTEROL/IPRATROPIUM 3 ML NEB RESP TX SCH ×2 (02:52→07:22)
[2021-06-01] MEDS: INSULIN REGULAR 100 UNIT/ML SUBCUT SCH ×2 (09:40→11:57)
[2021-06-01] MEDS: CLOPIDOGREL 75 MG TABLET PO SCH (09:40)
[2021-06-01] MEDS: ASPIRIN EC 81 MG TABLET PO SCH (09:40)
[2021-06-01] MEDS: FERROUS SULFATE 325 MG TABLET PO SCH (09:40)
[2021-06-01] MEDS: PANTOPRAZOLE 40 MG TABLET PO SCH (09:40)
[2021-06-01] MEDS: DOCUSATE SODIUM 100 MG CAPSULE PO SCH (09:40)
[2021-06-01] MEDS: METOPROLOL TARTRATE 25 MG TABLET PO SCH (09:40)
[2021-06-01] MEDS: hydroCHLOROthiazide 25 MG TABLET PO SCH (09:40)
[2021-06-01] MEDS: CHLORHEXIDINE 0.12% ORAL RINSE 60 ML BOTTLE SWISH/SPIT SCH (11:03)
[2021-06-01 12:41] VITALS: BP 132/74
== END 2021-06-01 14:56 | disposition home health service (06) | DRG 235 ==
LOC: N.TELES 17:41 → N.CVR 05-24 11:20 → N.ICU 05-25 19:05 → N.TELES 05-29 16:47

== ENCOUNTER 2021-06-08 01:29 | Inpatient (IN) ==
[2021-06-08 01:50] LABS: Basophils # 0.1 10*3/uL (0.0-0.2); Basophils % 0.9 % (0.0-0.8); Eosinophils # 0.5 10*3/uL (0.0-0.87); Eosinophils % 4.3 % (0.00-10.9); Hematocrit 29.9 VOL% (42.0-52.0); Hemoglobin 9.4 GM/DL (14.0-18.0); Immature Granulocytes % 0.4 %; Immature Granulocytes Absolute 0.05 #; Lymphocytes # 1.7 10*3/uL (1.4-4.0); Mean Corpuscular HGB Conc 31.4 GM/DL (32-36); Mean Corpuscular Volume 86.7 FL (87-102); Mean Platelet Volume 9.2 FL (9.6-12.0); Monocytes % 4.5 % (1.7-12.7); Neutrophils % 75.9 % (38.7-73.9); Platelet Count 348 T/CUMM (130-400); Red Blood Count 3.45 MC/CUMM (3.8-5.5); Red Cell Distribution Width 12.9 % (9.3-17.3); White Blood Count 12.2 T/CUMM (4-12)
[2021-06-08] MEDS ORDERED: FUROSEMIDE 40 MG/4 ML VIAL IV STA (02:02)
[2021-06-08 02:04] LABS: ABG Base Excess -0.7 MMOL/L (-2.5-2.5); ABG HCO3 22.2 MMOL/L (20-26); ABG Oxygen Saturation 93.7 % (95-100); ABG PCO2 30.2 MM HG (35-48); ABG PH 7.485 (7.35-7.45); ABG PO2 66.5 MM HG (80-95); ABG TCO2 23.2 MMOL/L (23-27)
[2021-06-08 02:31] LABS: Alanine Aminotransferase 14 U/L (16-61); Albumin 2.3 G/DL (3.4-5.0); Alkaline Phosphatase 97 U/L (45-117); Aspartate Amino Transferase 7 U/L (0-37); Bilirubin,Total < 0.39 MG/DL (0.20-1.00); Blood Urea Nitrogen 30 MG/DL (7-18); Calcium 8.1 MG/DL (8.5-10.1); Carbon Dioxide 24 MMOL/L (21-32); Estimated Glom Filtration Rate 32 ML/MIN; Glucose 252 MG/DL (74-106); Osmolality,Calculated 295.3 MOS/KG (273-304); Potassium 3.7 MMOL/L (3.5-5.1); Sodium 141 MMOL/L (136-145); Total Protein 6.2 G/DL (6.4-8.2)
[2021-06-08] MEDS ORDERED: LABETALOL 20 MG/4 ML SYRINGE IV STA (04:15)
[2021-06-08] MEDS ORDERED: MAGNESIUM SULF RIDER 4 GM/100 ML PREMIX IV PRN (04:56)
[2021-06-08] MEDS ORDERED: MAGNESIUM SULF RIDER 2 GM/50 ML PREMIX IV PRN (04:56)
[2021-06-08] MEDS ORDERED: DEXTROSE 50% 25 GM/50 ML VIAL IV PRN (04:56)
[2021-06-08] MEDS ORDERED: GLUCAGON 1 MG VIAL IM PRN ×2 (04:56)
[2021-06-08] MEDS ORDERED: ACETAMINOPHEN 325 MG TABLET PO PRN (04:56)
[2021-06-08] MEDS ORDERED: ONDANSETRON 4 MG/2 ML VIAL IV PRN (04:56)
[2021-06-08] MEDS ORDERED: DEXTROSE 50% 25 GM/50 ML SYRINGE IV PRN (05:04)
[2021-06-08] MEDS ORDERED: hydrALAZINE 20 MG/1 ML VIAL IV PRN (05:06)
[2021-06-08] MEDS: INSULIN REGULAR 100 UNIT/ML SUBCUT SCH ×4 (08:15→21:53)
[2021-06-08] MEDS: FUROSEMIDE 100 MG/10 ML VIAL IV SCH ×2 (08:55→17:40)
[2021-06-08] MEDS: PANTOPRAZOLE 40 MG TABLET PO SCH (08:55)
[2021-06-08] MEDS ORDERED: NICOTINE 21 MG/24 HR PATCH TRANSDERM PRN (11:36)
[2021-06-08] MEDS: ALBUTEROL/IPRATROPIUM 3 ML NEB RESP TX SCH ×2 (13:37→19:50)
[2021-06-08] MEDS: CEFEPIME 1,000 MG in SODIUM CHLORIDE 0.9% 100 ML IV SCH ×2 (14:30→18:16)
[2021-06-08] MEDS: AZITHROMYCIN INJ 500 MG in SODIUM CHLORIDE 0.9% 250 ML IV SCH (15:00)
[2021-06-08] MEDS ORDERED: FUROSEMIDE 40 MG/4 ML VIAL IV SCH (15:00)
[2021-06-08] MEDS: ATORVASTATIN 40 MG TABLET PO SCH (21:36)
[2021-06-08] MEDS: TAMSULOSIN 0.4 MG CAPSULE PO SCH (21:36)
[2021-06-08] MEDS: METOPROLOL TARTRATE 25 MG TABLET PO SCH (21:36)
[2021-06-09] MEDS: ALBUTEROL/IPRATROPIUM 3 ML NEB RESP TX SCH ×4 (00:17→19:41)
[2021-06-09] MEDS: CEFEPIME 1,000 MG in SODIUM CHLORIDE 0.9% 100 ML IV SCH ×3 (04:15→18:05)
[2021-06-09 05:31] LABS: Basophils # 0.1 10*3/uL (0.0-0.2); Basophils % 1.2 % (0.0-0.8); Eosinophils # 0.5 10*3/uL (0.0-0.87); Hematocrit 27.2 VOL% (42.0-52.0); Hemoglobin 8.8 GM/DL (14.0-18.0); Immature Granulocytes % 0.3 %; Immature Granulocytes Absolute 0.03 #; Lymphocytes # 1.9 10*3/uL (1.4-4.0); Lymphocytes % 21.6 % (21.2-54.2); Mean Corpuscular HGB Conc 32.4 GM/DL (32-36); Mean Corpuscular Volume 86.3 FL (87-102); Mean Platelet Volume 9.4 FL (9.6-12.0); Neutrophils % 64.9 % (38.7-73.9); Platelet Count 301 T/CUMM (130-400); Red Blood Count 3.15 MC/CUMM (3.8-5.5); Red Cell Distribution Width 12.9 % (9.3-17.3); White Blood Count 8.9 T/CUMM (4-12)
[2021-06-09 05:56] LABS: Albumin 2.1 G/DL (3.4-5.0); Bilirubin,Total 0.7 MG/DL (0.20-1.00); Calcium 8.1 MG/DL (8.5-10.1); Calcium 8.3 MG/DL (8.5-10.1); Osmolality,Calculated 285.8 MOS/KG (273-304); Osmolality,Calculated 288.7 MOS/KG (273-304); Potassium 3.3 MMOL/L (3.5-5.1); Total Protein 6.1 G/DL (6.4-8.2)
[2021-06-09] MEDS: CLOPIDOGREL 75 MG TABLET PO SCH (09:08)
[2021-06-09] MEDS: METOPROLOL TARTRATE 25 MG TABLET PO SCH ×2 (09:08→20:57)
[2021-06-09] MEDS: ASPIRIN EC 81 MG TABLET PO SCH (09:08)
[2021-06-09] MEDS: TAMSULOSIN 0.4 MG CAPSULE PO SCH ×2 (09:08→20:57)
[2021-06-09] MEDS: PANTOPRAZOLE 40 MG TABLET PO SCH (09:08)
[2021-06-09] MEDS: FUROSEMIDE 100 MG/10 ML VIAL IV SCH ×2 (11:16→17:21)
[2021-06-09] MEDS: INSULIN REGULAR 100 UNIT/ML SUBCUT SCH ×4 (11:17→20:57)
[2021-06-09] MEDS: AZITHROMYCIN INJ 500 MG in SODIUM CHLORIDE 0.9% 250 ML IV SCH (12:39)
[2021-06-09] MEDS ORDERED: CLORAZEPATE 3.75 MG TABLET PO PRN (15:33)
[2021-06-09] MEDS: ATORVASTATIN 40 MG TABLET PO SCH (20:57)
[2021-06-10] MEDS: ALBUTEROL/IPRATROPIUM 3 ML NEB RESP TX SCH ×4 (01:03→19:43)
[2021-06-10] MEDS: CEFEPIME 1,000 MG in SODIUM CHLORIDE 0.9% 100 ML IV SCH ×3 (03:39→22:25)
[2021-06-10 05:37] LABS: Basophils # 0.1 10*3/uL (0.0-0.2); Eosinophils # 0.4 10*3/uL (0.0-0.87); Eosinophils % 4.2 % (0.00-10.9); Hematocrit 28.5 VOL% (42.0-52.0); Hemoglobin 9.1 GM/DL (14.0-18.0); Immature Granulocytes % 0.4 %; Immature Granulocytes Absolute 0.04 #; Lymphocytes # 1.6 10*3/uL (1.4-4.0); Lymphocytes % 17.4 % (21.2-54.2); Mean Corpuscular HGB Conc 31.9 GM/DL (32-36); Mean Corpuscular Volume 85.1 FL (87-102); Mean Platelet Volume 9.2 FL (9.6-12.0); Platelet Count 295 T/CUMM (130-400); Red Blood Count 3.35 MC/CUMM (3.8-5.5); White Blood Count 9.2 T/CUMM (4-12)
[2021-06-10 05:57] LABS: Calcium 8.1 MG/DL (8.5-10.1); Osmolality,Calculated 291.5 MOS/KG (273-304); Potassium 3.5 MMOL/L (3.5-5.1)
[2021-06-10] MEDS ORDERED: LACTULOSE 20 GM/30 ML UDCUP PO PRN (09:20)
[2021-06-10] MEDS ORDERED: KETOROLAC 30 MG/1 ML VIAL IV SCH (09:30)
[2021-06-10] MEDS: METOPROLOL TARTRATE 25 MG TABLET PO SCH ×2 (10:02→22:24)
[2021-06-10] MEDS: TAMSULOSIN 0.4 MG CAPSULE PO SCH ×2 (10:02→22:24)
[2021-06-10] MEDS: PANTOPRAZOLE 40 MG TABLET PO SCH (10:02)
[2021-06-10] MEDS: CLOPIDOGREL 75 MG TABLET PO SCH (10:02)
[2021-06-10] MEDS: INSULIN REGULAR 100 UNIT/ML SUBCUT SCH ×4 (10:03→22:47)
[2021-06-10] MEDS: ASPIRIN EC 81 MG TABLET PO SCH (10:14)
[2021-06-10] MEDS: POLYETHYLENE GLYCOL POWDER 17 GM PACK PO SCH (10:15)
[2021-06-10] MEDS: DOCUSATE SODIUM 100 MG CAPSULE PO SCH ×2 (10:15→22:24)
[2021-06-10] MEDS: FUROSEMIDE 100 MG/10 ML VIAL IV SCH ×2 (11:20→16:12)
[2021-06-10] MEDS: AZITHROMYCIN INJ 500 MG in SODIUM CHLORIDE 0.9% 250 ML IV SCH (11:23)
[2021-06-10] MEDS: CLORAZEPATE 3.75 MG TABLET PO PRN ×2 (12:04→19:30)
[2021-06-10] MEDS: ATORVASTATIN 40 MG TABLET PO SCH (22:24)
[2021-06-11] MEDS: CLORAZEPATE 3.75 MG TABLET PO PRN (00:19)
[2021-06-11] MEDS: ALBUTEROL/IPRATROPIUM 3 ML NEB RESP TX SCH ×6 (00:33→20:20)
[2021-06-11 05:34] LABS: Basophils # 0.1 10*3/uL (0.0-0.2); Basophils % 1.1 % (0.0-0.8); Eosinophils # 0.4 10*3/uL (0.0-0.87); Eosinophils % 4.3 % (0.00-10.9); Hematocrit 30.4 VOL% (42.0-52.0); Hemoglobin 9.5 GM/DL (14.0-18.0); Immature Granulocytes % 0.7 %; Immature Granulocytes Absolute 0.07 #; Lymphocytes % 21.3 % (21.2-54.2); Mean Corpuscular HGB Conc 31.3 GM/DL (32-36); Mean Corpuscular Volume 87.4 FL (87-102); Mean Platelet Volume 9.5 FL (9.6-12.0); Monocytes % 6.4 % (1.7-12.7); Neutrophils % 66.2 % (38.7-73.9); Platelet Count 308 T/CUMM (130-400); Red Blood Count 3.48 MC/CUMM (3.8-5.5); Red Cell Distribution Width 13.1 % (9.3-17.3); White Blood Count 9.5 T/CUMM (4-12)
[2021-06-11 05:52] LABS: Calcium 8.4 MG/DL (8.5-10.1); Osmolality,Calculated 288.4 MOS/KG (273-304); Potassium 3.1 MMOL/L (3.5-5.1)
[2021-06-11] MEDS: INSULIN REGULAR 100 UNIT/ML SUBCUT SCH ×4 (10:09→22:57)
[2021-06-11] MEDS: DOCUSATE SODIUM 100 MG CAPSULE PO SCH ×2 (10:11→22:56)
[2021-06-11] MEDS: ASPIRIN EC 81 MG TABLET PO SCH (10:11)
[2021-06-11] MEDS: METOPROLOL TARTRATE 25 MG TABLET PO SCH ×2 (10:11→22:56)
[2021-06-11] MEDS: TAMSULOSIN 0.4 MG CAPSULE PO SCH ×2 (10:11→22:57)
[2021-06-11] MEDS: PANTOPRAZOLE 40 MG TABLET PO SCH (10:12)
[2021-06-11] MEDS: CLOPIDOGREL 75 MG TABLET PO SCH (10:12)
[2021-06-11] MEDS: POLYETHYLENE GLYCOL POWDER 17 GM PACK PO SCH (10:12)
[2021-06-11] MEDS: FUROSEMIDE 100 MG/10 ML VIAL IV SCH ×2 (10:15→18:32)
[2021-06-11] MEDS: CEFEPIME 1,000 MG in SODIUM CHLORIDE 0.9% 100 ML IV SCH ×3 (10:29→22:57)
[2021-06-11] MEDS: POTASSIUM CHLORIDE 20 MEQ TABLET PO PRN ×3 (10:56→18:31)
[2021-06-11] MEDS: AZITHROMYCIN INJ 500 MG in SODIUM CHLORIDE 0.9% 250 ML IV SCH (11:03)
[2021-06-11 13:37] LABS: ABG Oxygen Saturation 93.2 % (95-100); ABG PCO2 32.5 MM HG (35-48); ABG PH 7.507 (7.35-7.45); ABG PO2 63.6 MM HG (80-95); ABG TCO2 23.4 MMOL/L (23-27)
[2021-06-11 14:04] LABS: Calcium 8.6 MG/DL (8.5-10.1); Osmolality,Calculated 286.8 MOS/KG (273-304)
[2021-06-11 14:08] LABS: Bilirubin,Urine Negative (Negative); Blood, Urine Small mg/dL (Negative); Glucose,Urine (UA) 150 mg/dL (Negative); Ketones,Urine Negative (Negative); Nitrite,Urine Negative (Negative); Protein,Urine 100 MG/DL; RBC,Urine 1 /HPF (0-4); Squamous Epithelial Cell,Urine Occasional /HPF (0-10); Urine Appearance CLEAR (Clear); Urine Color Straw (Yellow); Urine Specific Gravity 1.008 (1.001-1.035); Urine Urobilinogen < 2.0 EU/DL (0.2-1.0)
[2021-06-11 14:11] LABS: Hyaline Casts,Urine 1 /LPF (0-3)
[2021-06-11] MEDS ORDERED: ONDANSETRON 4 MG/2 ML VIAL IV PRN (20:14)
[2021-06-11 20:22] LABS: ABG Base Excess -0.6 MMOL/L (-2.5-2.5); ABG HCO3 23.8 MMOL/L (20-26); ABG Oxygen Saturation 92.2 % (95-100); ABG PCO2 35.5 MM HG (35-48); ABG PH 7.426 (7.35-7.45); ABG PO2 65.5 MM HG (80-95); ABG TCO2 21.1 MMOL/L (23-27)
[2021-06-11] MEDS ORDERED: FUROSEMIDE 40 MG/4 ML VIAL IV ONE (20:25)
[2021-06-11] MEDS ORDERED: CLORAZEPATE 7.5 MG TABLET PO ONE (20:28)
[2021-06-11] MEDS: ATORVASTATIN 40 MG TABLET PO SCH (22:56)
[2021-06-12] MEDS: ALBUTEROL/IPRATROPIUM 3 ML NEB RESP TX SCH ×4 (00:30→19:59)
[2021-06-12 06:15] LABS: Basophils # 0.1 10*3/uL (0.0-0.2); Basophils % 0.8 % (0.0-0.8); Eosinophils # 0.2 10*3/uL (0.0-0.87); Eosinophils % 1.6 % (0.00-10.9); Hematocrit 34.4 VOL% (42.0-52.0); Hemoglobin 10.3 GM/DL (14.0-18.0); Immature Granulocytes % 0.4 %; Immature Granulocytes Absolute 0.05 #; Lymphocytes # 1.9 10*3/uL (1.4-4.0); Lymphocytes % 15.7 % (21.2-54.2); Mean Corpuscular HGB Conc 29.9 GM/DL (32-36); Mean Corpuscular Volume 89.4 FL (87-102); Mean Platelet Volume 9.3 FL (9.6-12.0); Monocytes % 6.3 % (1.7-12.7); Neutrophils % 75.2 % (38.7-73.9); Platelet Count 323 T/CUMM (130-400); Red Blood Count 3.85 MC/CUMM (3.8-5.5); Red Cell Distribution Width 13.2 % (9.3-17.3); White Blood Count 12.1 T/CUMM (4-12)
[2021-06-12] MEDS: CEFEPIME 1,000 MG in SODIUM CHLORIDE 0.9% 100 ML IV SCH ×3 (06:27→23:35)
[2021-06-12 06:28] LABS: Calcium 8.7 MG/DL (8.5-10.1); Osmolality,Calculated 286.5 MOS/KG (273-304); Potassium 3.7 MMOL/L (3.5-5.1)
[2021-06-12] MEDS: INSULIN REGULAR 100 UNIT/ML SUBCUT SCH ×3 (07:46→16:34)
[2021-06-12] MEDS: POLYETHYLENE GLYCOL POWDER 17 GM PACK PO SCH (09:11)
[2021-06-12] MEDS: FUROSEMIDE 100 MG/10 ML VIAL IV SCH ×2 (09:11→15:55)
[2021-06-12] MEDS: METOPROLOL TARTRATE 25 MG TABLET PO SCH ×2 (09:12→21:35)
[2021-06-12] MEDS: PANTOPRAZOLE 40 MG TABLET PO SCH (09:12)
[2021-06-12] MEDS: TAMSULOSIN 0.4 MG CAPSULE PO SCH ×2 (09:12→21:35)
[2021-06-12] MEDS: CLOPIDOGREL 75 MG TABLET PO SCH (09:12)
[2021-06-12] MEDS: DOCUSATE SODIUM 100 MG CAPSULE PO SCH ×2 (09:12→21:47)
[2021-06-12] MEDS: ASPIRIN EC 81 MG TABLET PO SCH (09:12)
[2021-06-12] MEDS: CLORAZEPATE 7.5 MG TABLET PO PRN ×2 (09:12→21:35)
[2021-06-12] MEDS: POTASSIUM CHLORIDE 20 MEQ TABLET PO SCH (09:12)
[2021-06-12] MEDS: SPIRONOLACTONE 50 MG TABLET PO SCH (12:13)
[2021-06-12] MEDS: AZITHROMYCIN INJ 500 MG in SODIUM CHLORIDE 0.9% 250 ML IV SCH (12:15)
[2021-06-12 13:11] LABS: INR 1.1; PT Patient Result 12.2 SECS (10.5-12.0)
[2021-06-12] MEDS: ACETYLCYSTEINE 20% 800 MG/4 ML VIAL RESP TX SCH (14:24)
[2021-06-12] MEDS: BUDESONIDE 0.5 MG/2 ML NEB RESP TX SCH ×2 (14:24→19:59)
[2021-06-12] MEDS: ATORVASTATIN 40 MG TABLET PO SCH (21:35)
[2021-06-13] MEDS: ACETYLCYSTEINE 20% 800 MG/4 ML VIAL RESP TX SCH ×3 (00:32→13:33)
[2021-06-13] MEDS: ALBUTEROL/IPRATROPIUM 3 ML NEB RESP TX SCH ×4 (00:33→19:45)
[2021-06-13] MEDS: INSULIN REGULAR 100 UNIT/ML SUBCUT SCH ×5 (02:14→21:27)
[2021-06-13] MEDS: CLORAZEPATE 7.5 MG TABLET PO PRN ×2 (02:38→11:51)
[2021-06-13 06:02] LABS: Basophils # 0.1 10*3/uL (0.0-0.2); Eosinophils # 0.4 10*3/uL (0.0-0.87); Eosinophils % 5.3 % (0.00-10.9); Hematocrit 27.7 VOL% (42.0-52.0); Hemoglobin 8.4 GM/DL (14.0-18.0); Immature Granulocytes % 0.7 %; Immature Granulocytes Absolute 0.05 #; Lymphocytes # 1.9 10*3/uL (1.4-4.0); Lymphocytes % 25.5 % (21.2-54.2); Mean Corpuscular HGB Conc 30.3 GM/DL (32-36); Mean Corpuscular Volume 89.4 FL (87-102); Mean Platelet Volume 9.9 FL (9.6-12.0); Monocytes % 6.9 % (1.7-12.7); Neutrophils % 60.6 % (38.7-73.9); Platelet Count 247 T/CUMM (130-400); Red Cell Distribution Width 13.4 % (9.3-17.3); White Blood Count 7.3 T/CUMM (4-12)
[2021-06-13] MEDS: CEFEPIME 1,000 MG in SODIUM CHLORIDE 0.9% 100 ML IV SCH ×2 (06:16→14:25)
[2021-06-13 06:41] LABS: Alanine Aminotransferase 12 U/L (16-61); Alkaline Phosphatase 91 U/L (45-117); Aspartate Amino Transferase 3 U/L (0-37); Bilirubin,Total < 0.39 MG/DL (0.20-1.00); Blood Urea Nitrogen 36 MG/DL (7-18); Calcium 7.8 MG/DL (8.5-10.1); Carbon Dioxide 22 MMOL/L (21-32); Estimated Glom Filtration Rate 25 ML/MIN; Glucose 459 MG/DL (74-106); Osmolality,Calculated 300.8 MOS/KG (273-304); Potassium 4.3 MMOL/L (3.5-5.1); Sodium 137 MMOL/L (136-145); Total Protein 6.1 G/DL (6.4-8.2)
[2021-06-13 06:48] LABS: Calcium 7.9 MG/DL (8.5-10.1); Osmolality,Calculated 303.7 MOS/KG (273-304); Potassium 4.3 MMOL/L (3.5-5.1)
[2021-06-13] MEDS: BUDESONIDE 0.5 MG/2 ML NEB RESP TX SCH ×2 (07:02→19:50)
[2021-06-13] MEDS: POTASSIUM CHLORIDE 20 MEQ TABLET PO SCH (08:51)
[2021-06-13] MEDS: SPIRONOLACTONE 50 MG TABLET PO SCH (08:52)
[2021-06-13] MEDS: ASPIRIN EC 81 MG TABLET PO SCH (08:52)
[2021-06-13] MEDS: PANTOPRAZOLE 40 MG TABLET PO SCH (08:52)
[2021-06-13] MEDS: TAMSULOSIN 0.4 MG CAPSULE PO SCH ×2 (08:52→21:27)
[2021-06-13] MEDS: METOPROLOL TARTRATE 25 MG TABLET PO SCH ×2 (08:52→21:27)
[2021-06-13] MEDS: FUROSEMIDE 100 MG/10 ML VIAL IV SCH ×2 (08:53→16:34)
[2021-06-13] MEDS: DOCUSATE SODIUM 100 MG CAPSULE PO SCH ×2 (08:53→21:28)
[2021-06-13] MEDS: POLYETHYLENE GLYCOL POWDER 17 GM PACK PO SCH (08:54)
[2021-06-13] MEDS: AZITHROMYCIN INJ 500 MG in SODIUM CHLORIDE 0.9% 250 ML IV SCH (11:51)
[2021-06-13] MEDS: ATORVASTATIN 40 MG TABLET PO SCH (21:27)
[2021-06-14] MEDS: CEFEPIME 1,000 MG in SODIUM CHLORIDE 0.9% 100 ML IV SCH ×4 (00:32→23:29)
[2021-06-14] MEDS: CLORAZEPATE 7.5 MG TABLET PO PRN ×2 (02:05→20:47)
[2021-06-14 03:43] LABS: Basophils # 0.1 10*3/uL (0.0-0.2); Eosinophils # 0.7 10*3/uL (0.0-0.87); Eosinophils % 7.3 % (0.00-10.9); Hematocrit 27.1 VOL% (42.0-52.0); Hemoglobin 8.3 GM/DL (14.0-18.0); Immature Granulocytes % 0.5 %; Immature Granulocytes Absolute 0.05 #; Lymphocytes # 2.1 10*3/uL (1.4-4.0); Lymphocytes % 22.4 % (21.2-54.2); Mean Corpuscular HGB Conc 30.6 GM/DL (32-36); Mean Platelet Volume 9.7 FL (9.6-12.0); Monocytes % 6.3 % (1.7-12.7); Neutrophils % 62.5 % (38.7-73.9); Platelet Count 246 T/CUMM (130-400); Red Blood Count 3.01 MC/CUMM (3.8-5.5); Red Cell Distribution Width 13.6 % (9.3-17.3); White Blood Count 9.2 T/CUMM (4-12)
[2021-06-14 04:07] LABS: Osmolality,Calculated 292.4 MOS/KG (273-304); Potassium 3.7 MMOL/L (3.5-5.1)
[2021-06-14] MEDS: ACETYLCYSTEINE 20% 800 MG/4 ML VIAL RESP TX SCH ×3 (07:05→16:28)
[2021-06-14] MEDS: ALBUTEROL/IPRATROPIUM 3 ML NEB RESP TX SCH ×4 (07:05→20:27)
[2021-06-14] MEDS: BUDESONIDE 0.5 MG/2 ML NEB RESP TX SCH ×2 (07:05→20:27)
[2021-06-14] MEDS: METOPROLOL TARTRATE 25 MG TABLET PO SCH ×2 (09:57→20:22)
[2021-06-14] MEDS: ASPIRIN EC 81 MG TABLET PO SCH (09:57)
[2021-06-14] MEDS: PANTOPRAZOLE 40 MG TABLET PO SCH (09:57)
[2021-06-14] MEDS: SPIRONOLACTONE 50 MG TABLET PO SCH (09:57)
[2021-06-14] MEDS: TAMSULOSIN 0.4 MG CAPSULE PO SCH ×2 (09:57→20:22)
[2021-06-14] MEDS: POTASSIUM CHLORIDE 20 MEQ TABLET PO SCH (09:57)
[2021-06-14] MEDS: FUROSEMIDE 100 MG/10 ML VIAL IV SCH ×2 (10:01→17:13)
[2021-06-14] MEDS: INSULIN REGULAR 100 UNIT/ML SUBCUT SCH ×4 (10:04→20:48)
[2021-06-14] MEDS: DOCUSATE SODIUM 100 MG CAPSULE PO SCH ×2 (10:09→20:23)
[2021-06-14] MEDS: POLYETHYLENE GLYCOL POWDER 17 GM PACK PO SCH (10:10)
[2021-06-14] MEDS: POTASSIUM CHLORIDE 20 MEQ TABLET PO PRN (11:27)
[2021-06-14] MEDS: AZITHROMYCIN INJ 500 MG in SODIUM CHLORIDE 0.9% 250 ML IV SCH (11:28)
[2021-06-14] MEDS: ATORVASTATIN 40 MG TABLET PO SCH (20:22)
[2021-06-15] MEDS: ACETYLCYSTEINE 20% 800 MG/4 ML VIAL RESP TX SCH ×3 (00:53→12:35)
[2021-06-15] MEDS: ALBUTEROL/IPRATROPIUM 3 ML NEB RESP TX SCH ×4 (00:53→19:50)
[2021-06-15 06:16] LABS: Calcium 8.7 MG/DL (8.5-10.1); Osmolality,Calculated 296.3 MOS/KG (273-304); Potassium 3.9 MMOL/L (3.5-5.1)
[2021-06-15] MEDS: CEFEPIME 1,000 MG in SODIUM CHLORIDE 0.9% 100 ML IV SCH ×2 (06:43→15:16)
[2021-06-15] MEDS: BUDESONIDE 0.5 MG/2 ML NEB RESP TX SCH ×2 (07:50→19:50)
[2021-06-15] MEDS: ASPIRIN EC 81 MG TABLET PO SCH (10:27)
[2021-06-15] MEDS: POTASSIUM CHLORIDE 20 MEQ TABLET PO SCH (10:27)
[2021-06-15] MEDS: TAMSULOSIN 0.4 MG CAPSULE PO SCH ×2 (10:27→21:24)
[2021-06-15] MEDS: CLORAZEPATE 3.75 MG TABLET PO PRN (10:27)
[2021-06-15] MEDS: PANTOPRAZOLE 40 MG TABLET PO SCH (10:28)
[2021-06-15] MEDS: SPIRONOLACTONE 50 MG TABLET PO SCH (10:28)
[2021-06-15] MEDS: METOPROLOL TARTRATE 25 MG TABLET PO SCH ×2 (10:28→21:24)
[2021-06-15] MEDS: FUROSEMIDE 100 MG/10 ML VIAL IV SCH ×2 (10:32→16:15)
[2021-06-15] MEDS: AZITHROMYCIN INJ 500 MG in SODIUM CHLORIDE 0.9% 250 ML IV SCH (10:33)
[2021-06-15] MEDS: INSULIN REGULAR 100 UNIT/ML SUBCUT SCH ×4 (10:37→21:24)
[2021-06-15] MEDS: DOCUSATE SODIUM 100 MG CAPSULE PO SCH ×2 (10:39→21:24)
[2021-06-15] MEDS: POLYETHYLENE GLYCOL POWDER 17 GM PACK PO SCH (10:39)
[2021-06-15] MEDS ORDERED: LORazepam 0.5 MG TABLET PO ONE (11:49)
[2021-06-15] MEDS ORDERED: LORazepam 1 MG TABLET PO ONE (12:00)
[2021-06-15 12:07] LABS: ABG Base Excess -1.8 MMOL/L (-2.5-2.5); ABG HCO3 21.9 MMOL/L (20-26); ABG Oxygen Saturation 92.3 % (95-100); ABG PH 7.439 (7.35-7.45); ABG PO2 63.7 MM HG (80-95); ABG TCO2 22.9 MMOL/L (23-27)
[2021-06-15 13:23] LABS: Basophils # 0.1 10*3/uL (0.0-0.2); Basophils % 0.9 % (0.0-0.8); Eosinophils # 0.4 10*3/uL (0.0-0.87); Eosinophils % 4.3 % (0.00-10.9); Hematocrit 30.4 VOL% (42.0-52.0); Hemoglobin 9.3 GM/DL (14.0-18.0); Immature Granulocytes % 0.6 %; Immature Granulocytes Absolute 0.06 #; Lymphocytes # 1.6 10*3/uL (1.4-4.0); Lymphocytes % 16.5 % (21.2-54.2); Mean Corpuscular HGB Conc 30.6 GM/DL (32-36); Mean Corpuscular Volume 89.4 FL (87-102); Monocytes % 5.5 % (1.7-12.7); Neutrophils % 72.2 % (38.7-73.9); Platelet Count 291 T/CUMM (130-400); Red Cell Distribution Width 13.9 % (9.3-17.3); White Blood Count 9.5 T/CUMM (4-12)
[2021-06-15] MEDS: ATORVASTATIN 40 MG TABLET PO SCH (21:24)
[2021-06-15] MEDS: CLORAZEPATE 7.5 MG TABLET PO PRN (21:49)
[2021-06-16] MEDS: ACETYLCYSTEINE 20% 800 MG/4 ML VIAL RESP TX SCH ×3 (02:20→13:30)
[2021-06-16] MEDS: ALBUTEROL/IPRATROPIUM 3 ML NEB RESP TX SCH ×4 (02:20→18:56)
[2021-06-16] MEDS: CLORAZEPATE 7.5 MG TABLET PO PRN ×2 (04:01→21:16)
[2021-06-16 05:40] LABS: Basophils # 0.1 10*3/uL (0.0-0.2); Basophils % 0.8 % (0.0-0.8); Eosinophils # 0.4 10*3/uL (0.0-0.87); Eosinophils % 4.5 % (0.00-10.9); Hematocrit 30.8 VOL% (42.0-52.0); Hemoglobin 9.3 GM/DL (14.0-18.0); Lymphocytes % 20.3 % (21.2-54.2); Mean Corpuscular HGB Conc 30.2 GM/DL (32-36); Mean Corpuscular Volume 89.3 FL (87-102); Mean Platelet Volume 9.9 FL (9.6-12.0); Monocytes % 6.8 % (1.7-12.7); Neutrophils % 67.2 % (38.7-73.9); Platelet Count 265 T/CUMM (130-400); Red Blood Count 3.45 MC/CUMM (3.8-5.5); Red Cell Distribution Width 14.2 % (9.3-17.3); White Blood Count 9.8 T/CUMM (4-12)
[2021-06-16 05:59] LABS: Albumin 2.4 G/DL (3.4-5.0); Bilirubin,Total 0.7 MG/DL (0.20-1.00); Calcium 8.7 MG/DL (8.5-10.1); Osmolality,Calculated 295.4 MOS/KG (273-304); Potassium 3.9 MMOL/L (3.5-5.1); Total Protein 6.7 G/DL (6.4-8.2)
[2021-06-16] MEDS: BUDESONIDE 0.5 MG/2 ML NEB RESP TX SCH ×2 (07:35→18:56)
[2021-06-16] MEDS: INSULIN REGULAR 100 UNIT/ML SUBCUT SCH ×4 (09:24→21:12)
[2021-06-16] MEDS: FUROSEMIDE 100 MG/10 ML VIAL IV SCH ×2 (09:24→16:45)
[2021-06-16] MEDS: POTASSIUM CHLORIDE 20 MEQ TABLET PO SCH (09:25)
[2021-06-16] MEDS: POLYETHYLENE GLYCOL POWDER 17 GM PACK PO SCH (09:25)
[2021-06-16] MEDS: PANTOPRAZOLE 40 MG TABLET PO SCH (09:25)
[2021-06-16] MEDS: ASPIRIN EC 81 MG TABLET PO SCH (09:25)
[2021-06-16] MEDS: METOPROLOL TARTRATE 25 MG TABLET PO SCH ×2 (09:25→21:12)
[2021-06-16] MEDS: TAMSULOSIN 0.4 MG CAPSULE PO SCH ×2 (09:25→21:11)
[2021-06-16] MEDS: SPIRONOLACTONE 50 MG TABLET PO SCH (09:25)
[2021-06-16] MEDS: DOCUSATE SODIUM 100 MG CAPSULE PO SCH ×2 (09:25→21:11)
[2021-06-16] MEDS: ATORVASTATIN 40 MG TABLET PO SCH (21:11)
[2021-06-17 06:01] LABS: Basophils # 0.1 10*3/uL (0.0-0.2); Basophils % 0.7 % (0.0-0.8); Eosinophils # 0.6 10*3/uL (0.0-0.87); Eosinophils % 5.6 % (0.00-10.9); Hematocrit 31.8 VOL% (42.0-52.0); Hemoglobin 9.5 GM/DL (14.0-18.0); Immature Granulocytes % 0.3 %; Immature Granulocytes Absolute 0.03 #; Lymphocytes # 2.4 10*3/uL (1.4-4.0); Mean Corpuscular HGB Conc 29.9 GM/DL (32-36); Mean Corpuscular Volume 90.1 FL (87-102); Mean Platelet Volume 9.9 FL (9.6-12.0); Monocytes % 7.8 % (1.7-12.7); Neutrophils % 61.6 % (38.7-73.9); Platelet Count 295 T/CUMM (130-400); Red Blood Count 3.53 MC/CUMM (3.8-5.5); Red Cell Distribution Width 14.2 % (9.3-17.3); White Blood Count 9.8 T/CUMM (4-12)
[2021-06-17 06:32] LABS: Calcium 9.2 MG/DL (8.5-10.1); Osmolality,Calculated 293.4 MOS/KG (273-304); Potassium 3.9 MMOL/L (3.5-5.1)
[2021-06-17] MEDS: ALBUTEROL/IPRATROPIUM 3 ML NEB RESP TX SCH ×3 (07:32→20:10)
[2021-06-17] MEDS: BUDESONIDE 0.5 MG/2 ML NEB RESP TX SCH (07:32)
[2021-06-17] MEDS: ACETYLCYSTEINE 20% 800 MG/4 ML VIAL RESP TX SCH ×2 (07:32→22:10)
[2021-06-17] MEDS: METOPROLOL TARTRATE 25 MG TABLET PO SCH ×2 (09:20→21:00)
[2021-06-17] MEDS: POTASSIUM CHLORIDE 20 MEQ TABLET PO SCH (09:20)
[2021-06-17] MEDS: TAMSULOSIN 0.4 MG CAPSULE PO SCH ×2 (09:20→20:59)
[2021-06-17] MEDS: DOCUSATE SODIUM 100 MG CAPSULE PO SCH ×2 (09:20→20:59)
[2021-06-17] MEDS: PANTOPRAZOLE 40 MG TABLET PO SCH (09:20)
[2021-06-17] MEDS: INSULIN REGULAR 100 UNIT/ML SUBCUT SCH ×4 (09:21→20:59)
[2021-06-17] MEDS: ASPIRIN EC 81 MG TABLET PO SCH (09:21)
[2021-06-17] MEDS: SPIRONOLACTONE 50 MG TABLET PO SCH (09:21)
[2021-06-17] MEDS: POLYETHYLENE GLYCOL POWDER 17 GM PACK PO SCH (09:22)
[2021-06-17] MEDS: FUROSEMIDE 100 MG/10 ML VIAL IV SCH ×2 (09:28→16:36)
[2021-06-17] MEDS: HEPARIN 5,000 UNIT/1 ML VIAL SUBCUT SCH ×2 (11:12→22:38)
[2021-06-17] MEDS: CLORAZEPATE 7.5 MG TABLET PO PRN (20:59)
[2021-06-17] MEDS: ATORVASTATIN 40 MG TABLET PO SCH (21:00)
[2021-06-18] MEDS: ALBUTEROL/IPRATROPIUM 3 ML NEB RESP TX SCH ×4 (00:27→19:30)
[2021-06-18 04:25] LABS: Basophils # 0.1 10*3/uL (0.0-0.2); Basophils % 0.7 % (0.0-0.8); Eosinophils # 0.5 10*3/uL (0.0-0.87); Hematocrit 30.4 VOL% (42.0-52.0); Hemoglobin 9.2 GM/DL (14.0-18.0); Immature Granulocytes % 0.4 %; Immature Granulocytes Absolute 0.03 #; Lymphocytes # 1.9 10*3/uL (1.4-4.0); Mean Corpuscular HGB Conc 30.3 GM/DL (32-36); Mean Corpuscular Volume 89.4 FL (87-102); Mean Platelet Volume 9.9 FL (9.6-12.0); Monocytes % 8.3 % (1.7-12.7); Neutrophils % 58.6 % (38.7-73.9); Platelet Count 237 T/CUMM (130-400); Red Cell Distribution Width 14.5 % (9.3-17.3); White Blood Count 7.7 T/CUMM (4-12)
[2021-06-18 04:45] LABS: Albumin 2.3 G/DL (3.4-5.0); Bilirubin,Total 1.5 MG/DL (0.20-1.00); Calcium 8.4 MG/DL (8.5-10.1); Osmolality,Calculated 299.3 MOS/KG (273-304); Total Protein 6.5 G/DL (6.4-8.2)
[2021-06-18 04:56] LABS: Albumin 2.3 G/DL (3.4-5.0); Total Protein 6.5 G/DL (6.4-8.2)
[2021-06-18 05:28] LABS: Sedimentation Rate-Westergren 40 MM/HR (0-20)
[2021-06-18] MEDS: BUDESONIDE 0.5 MG/2 ML NEB RESP TX SCH ×3 (07:10→19:30)
[2021-06-18] MEDS: ACETYLCYSTEINE 20% 800 MG/4 ML VIAL RESP TX SCH ×4 (07:10→14:30)
[2021-06-18] MEDS: SPIRONOLACTONE 50 MG TABLET PO SCH (09:36)
[2021-06-18] MEDS: POTASSIUM CHLORIDE 20 MEQ TABLET PO SCH (09:36)
[2021-06-18] MEDS: METOPROLOL TARTRATE 25 MG TABLET PO SCH ×2 (09:36→22:02)
[2021-06-18] MEDS: PANTOPRAZOLE 40 MG TABLET PO SCH (09:37)
[2021-06-18] MEDS: INSULIN REGULAR 100 UNIT/ML SUBCUT SCH ×4 (09:37→22:03)
[2021-06-18] MEDS: FUROSEMIDE 100 MG/10 ML VIAL IV SCH ×2 (09:37→15:54)
[2021-06-18] MEDS: TAMSULOSIN 0.4 MG CAPSULE PO SCH ×2 (09:37→22:02)
[2021-06-18] MEDS: ASPIRIN EC 81 MG TABLET PO SCH (10:09)
[2021-06-18] MEDS: DOCUSATE SODIUM 100 MG CAPSULE PO SCH ×2 (10:09→22:02)
[2021-06-18] MEDS: POLYETHYLENE GLYCOL POWDER 17 GM PACK PO SCH (10:10)
[2021-06-18] MEDS ORDERED: TUBERCULIN SKIN TEST 0.1 ML SYRINGE INTRADERM ONE (10:36)
[2021-06-18] MEDS: HEPARIN 5,000 UNIT/1 ML VIAL SUBCUT SCH ×2 (10:38→22:02)
[2021-06-18] MEDS: CLORAZEPATE 7.5 MG TABLET PO PRN ×2 (11:36→22:02)
[2021-06-18 12:34] LABS: INR 1.1; PT Patient Result 12.3 SECS (10.5-12.0); Partial Thromboplastin Time 27.8 SECS (23.8-32.1)
[2021-06-18 16:18] LABS: Amylase,Body Fluid < 4 U/L; Glucose,Pleural Fluid 288 MG/DL; LDH,Body Fluid 72 U/L; Total Protein,Body Fluid 2.1 G/DL; Triglycerides,Body Fluid < 15 MG/DL
[2021-06-18 16:39] LABS: RBC,Pleural Fluid 4188 T/CUMM
[2021-06-18 16:42] LABS: Eosinophils,Pleural Fluid 1 %; Lymphocytes,Pleural Fluid 89 %; Neutrophils,Pleural Fluid 10 %
[2021-06-18] MEDS: ATORVASTATIN 40 MG TABLET PO SCH (22:02)
[2021-06-18] MEDS: INSULIN GLARGINE 100 UNIT/ML SUBCUT SCH (22:03)
[2021-06-19] MEDS: ACETYLCYSTEINE 20% 800 MG/4 ML VIAL RESP TX SCH ×2 (00:44→07:10)
[2021-06-19] MEDS: ALBUTEROL/IPRATROPIUM 3 ML NEB RESP TX SCH ×4 (01:18→20:04)
[2021-06-19] MEDS: CLORAZEPATE 7.5 MG TABLET PO PRN ×2 (03:31→21:40)
[2021-06-19 05:52] LABS: Basophils # 0.1 10*3/uL (0.0-0.2); Basophils % 0.7 % (0.0-0.8); Eosinophils # 0.7 10*3/uL (0.0-0.87); Eosinophils % 8.1 % (0.00-10.9); Hematocrit 31.5 VOL% (42.0-52.0); Hemoglobin 9.7 GM/DL (14.0-18.0); Immature Granulocytes % 0.6 %; Immature Granulocytes Absolute 0.05 #; Lymphocytes # 1.9 10*3/uL (1.4-4.0); Lymphocytes % 21.5 % (21.2-54.2); Mean Corpuscular HGB Conc 30.8 GM/DL (32-36); Mean Corpuscular Volume 89.5 FL (87-102); Mean Platelet Volume 9.8 FL (9.6-12.0); Monocytes % 7.2 % (1.7-12.7); Neutrophils % 61.9 % (38.7-73.9); Platelet Count 235 T/CUMM (130-400); Red Blood Count 3.52 MC/CUMM (3.8-5.5); Red Cell Distribution Width 14.3 % (9.3-17.3)
[2021-06-19 06:04] LABS: Calcium 8.7 MG/DL (8.5-10.1); Osmolality,Calculated 290.7 MOS/KG (273-304); Potassium 4.1 MMOL/L (3.5-5.1)
[2021-06-19] MEDS: BUDESONIDE 0.5 MG/2 ML NEB RESP TX SCH ×2 (07:10→20:04)
[2021-06-19] MEDS: PANTOPRAZOLE 40 MG TABLET PO SCH (09:20)
[2021-06-19] MEDS: ASPIRIN EC 81 MG TABLET PO SCH (09:20)
[2021-06-19] MEDS: TAMSULOSIN 0.4 MG CAPSULE PO SCH ×2 (09:20→21:40)
[2021-06-19] MEDS: POTASSIUM CHLORIDE 20 MEQ TABLET PO SCH (09:20)
[2021-06-19] MEDS: SPIRONOLACTONE 50 MG TABLET PO SCH (09:20)
[2021-06-19] MEDS: METOPROLOL TARTRATE 25 MG TABLET PO SCH ×2 (09:20→21:40)
[2021-06-19] MEDS: DOCUSATE SODIUM 100 MG CAPSULE PO SCH ×2 (09:20→21:40)
[2021-06-19] MEDS: POLYETHYLENE GLYCOL POWDER 17 GM PACK PO SCH (09:21)
[2021-06-19] MEDS: FUROSEMIDE 100 MG/10 ML VIAL IV SCH ×2 (09:31→16:35)
[2021-06-19] MEDS: HEPARIN 5,000 UNIT/1 ML VIAL SUBCUT SCH ×2 (09:32→21:41)
[2021-06-19] MEDS: INSULIN REGULAR 100 UNIT/ML SUBCUT SCH ×4 (09:40→21:41)
[2021-06-19] MEDS ORDERED: OLANZapine 2.5 MG TABLET PO SCH (21:00)
[2021-06-19] MEDS: INSULIN GLARGINE 100 UNIT/ML SUBCUT SCH (21:40)
[2021-06-19] MEDS: ATORVASTATIN 40 MG TABLET PO SCH (21:40)
[2021-06-20] MEDS: ALBUTEROL/IPRATROPIUM 3 ML NEB RESP TX SCH ×2 (01:35→07:20)
[2021-06-20 05:17] LABS: Basophils # 0.1 10*3/uL (0.0-0.2); Basophils % 0.6 % (0.0-0.8); Eosinophils # 0.7 10*3/uL (0.0-0.87); Eosinophils % 7.6 % (0.00-10.9); Hematocrit 31.4 VOL% (42.0-52.0); Hemoglobin 9.5 GM/DL (14.0-18.0); Immature Granulocytes % 0.4 %; Immature Granulocytes Absolute 0.03 #; Lymphocytes # 2.3 10*3/uL (1.4-4.0); Lymphocytes % 27.1 % (21.2-54.2); Mean Corpuscular HGB Conc 30.3 GM/DL (32-36); Mean Corpuscular Volume 90.5 FL (87-102); Monocytes % 7.9 % (1.7-12.7); Neutrophils % 56.4 % (38.7-73.9); Platelet Count 239 T/CUMM (130-400); Red Blood Count 3.47 MC/CUMM (3.8-5.5); Red Cell Distribution Width 14.6 % (9.3-17.3); White Blood Count 8.5 T/CUMM (4-12)
[2021-06-20 05:42] LABS: Calcium 8.4 MG/DL (8.5-10.1); Osmolality,Calculated 297.8 MOS/KG (273-304); Potassium 4.1 MMOL/L (3.5-5.1)
[2021-06-20] MEDS: BUDESONIDE 0.5 MG/2 ML NEB RESP TX SCH (07:20)
[2021-06-20] MEDS: ASPIRIN EC 81 MG TABLET PO SCH (08:47)
[2021-06-20] MEDS: PANTOPRAZOLE 40 MG TABLET PO SCH (08:47)
[2021-06-20] MEDS: SPIRONOLACTONE 50 MG TABLET PO SCH (08:47)
[2021-06-20] MEDS: METOPROLOL TARTRATE 25 MG TABLET PO SCH (08:47)
[2021-06-20] MEDS: TAMSULOSIN 0.4 MG CAPSULE PO SCH (08:47)
[2021-06-20] MEDS: POTASSIUM CHLORIDE 20 MEQ TABLET PO SCH (08:47)
[2021-06-20] MEDS: DOCUSATE SODIUM 100 MG CAPSULE PO SCH (08:48)
[2021-06-20] MEDS: POLYETHYLENE GLYCOL POWDER 17 GM PACK PO SCH (08:48)
[2021-06-20] MEDS: FUROSEMIDE 100 MG/10 ML VIAL IV SCH (08:51)
[2021-06-20] MEDS: INSULIN REGULAR 100 UNIT/ML SUBCUT SCH ×3 (08:54→12:12)
[2021-06-20] MEDS: HEPARIN 5,000 UNIT/1 ML VIAL SUBCUT SCH (11:48)
[2021-06-20 12:07] VITALS: BP 138/71
[2021-06-21 12:06] LABS: M. Tuberculosis PCR Result Negative (Negative); M. Tuberculosis PCR Source BODY FLUID
== END 2021-06-20 14:39 | DRG 264 ==
LOC: EDBD → EDUNIT# → N.EDINP 01:29 → N.ED 01:29 → SUATTDRO 04:56 → N.TELES 16:02 → SUATTDRO 06-10 12:21 → N.TELES 06-17 11:35
PROVIDERS: ADMIT Internal Medicine; ATTEND Emergency Medicine